=== PATIENT | female | born 1990 | race Caucasian/White ===

== ENCOUNTER 2016-09-18 09:45 | Emergency (ER) | payer OTHER ==
[2016-09-18] MEDS ORDERED: KETOROLAC 30 MG/ML 1 ML VIAL IM STA (10:21)
[2016-09-18] MEDS ORDERED: DIAZEPAM 5 MG/ML 2 ML SYRINGE IM ONE (10:21)
--- NOTE | 2016-09-18 11:32 | XR ---
EXAMINATION TYPE: XR cervical spine comp , 5 VIEWS DATE OF EXAM ORDERED: 09/18/2016 HISTORY: Pain. COMPARISON: None. FINDINGS: There is a reversal of the normal cervical lordosis which is replaced by mild kyphosis. Al ignment is normal. Atlantoaxial relationships are normal. No fractures are seen. No significant degen erative changes noted. The intervertebral foramina are widely patent. IMPRESSION: REVERSAL OF THE NORMAL CERVICAL LORDOSIS MAY BE SECONDARY TO MUSCLE SPASM. NO ACUTE OSSEOUS LESION IS SEEN.
--- NOTE | 2016-09-18 11:46 | ED ---
General Adult HPI - General Chief complaint: Neck Pain/Injury Stated complaint: neck pain Time Seen by Provider: 09/18/16 10:15 Source: patient, RN notes reviewed Mode of arrival: ambulatory Limitations: no limitations - History of Present Illness Initial comments: 20 sexual female presenting with pain in her neck primarily on the left side. Pain began suddenly this morning when she awoke. She only sleeps on her stomach and states she slipped on her back this evening and developed the pain upon wakening. She denies trauma but does states she felt a pop in her neck. She is concerned that there could be a problem with her cervical spine. She denies any shooting pain in her upper extremities. Denies any gait difficulties. Denies any trouble with her bowel or bladder. Denies numbness or tingling. - Related Data Previous Rx's Medication Instructions Recorded Ibuprofen [Motrin] 600 mg PO Q8HR PRN #24 tab 09/18/16 traMADol HCL [Ultram] 50 mg PO Q8HR PRN #20 tab 09/18/16 Allergies Allergy/AdvReac Type Severity Reaction Status Date / Time cefixime [From Suprax] Allergy Unknown Verified 09/18/16 10:13 Review of Systems ROS Statement: Those systems with pertinent positive or pertinent negative responses have been documented in the HPI. ROS Other: All systems not noted in ROS Statement are negative. Cardiovascular: Denies: chest pain Endocrine: Denies: fatigue Gastrointestinal: Denies: abdominal pain, nausea, vomiting Past Medical History Past Medical History: No Reported History Additional Past Medical History / Comment(s): previous heroin abuse History of Any Multi-Drug Resistant Organisms: None Reported Past Surgical History: No Surgical Hx Reported Past Psychological History: No Psychological Hx Reported Smoking Status: Current every day smoker Past Alcohol Use History: None Reported Past Drug Use History: None Reported General Exam Limitations: no limitations General appearance: alert, in no apparent distress Head exam: Present: atraumatic, normocephalic Eye exam: Present: normal appearance, PERRL ENT exam: Present: normal exam, mucous membranes moist Neck exam: Present: normal inspection, tenderness (Patient has tenderness to palpation over the mid cervical spine and primarily left paraspinal muscles.). Absent: full ROM Respiratory exam: Present: normal lung sounds bilaterally. Absent: respiratory distress Cardiovascular Exam: Present: regular rate, normal rhythm GI/Abdominal exam: Present: soft. Absent: distended, tenderness Extremities exam: Present: normal inspection, full ROM, normal capillary refill. Absent: pedal edema Neurological exam: Present: alert, oriented X3, CN II-XII intact. Absent: motor sensory deficit (Patient has equal strength 5 out of 5 in the upper extremities, sensation is intact.) Psychiatric exam: Present: normal affect, normal mood Skin exam: Present: warm, dry Course Vital Signs 09/18/16 09:56 Temperature 98.6 F Pulse Rate 82 Respiratory 18 Rate Blood Pressure 130/86 O2 Sat by Pulse 97 Oximetry - Reevaluation(s) Reevaluation #1: 09/18/16 11:42 Patient returns from computed tomography scan, on reevaluation after IM Toradol she is feeling somewhat better. Patient does not want narcotic medication for her pain. Medical Decision Making - Medical Decision Making 26 yo female presenting with sudden onset neck pain after sleeping on her back which is abnormal for the patient. Examination does reveal some tenderness in the paraspinal muscles. Patient is concerned for a bony abnormality in her cervical spine. CT of the cervical vertebrae is ordered and is unremarkable. Patient does not want muscle relaxers or narcotic pain medication. She was given a prescription for Motrin and tramadol and will follow up with her primary care physician. - Lab Data Lab Results 09/18/16 Range/Units 10:35 Urine HCG, Qual Not Detected (Not Detectd) Disposition Clinical Impression: Strain of neck muscle Disposition: HOME SELF-CARE Condition: Good Instructions: Cervical Strain (ED) Prescriptions: Ibuprofen [Motrin] 600 mg PO Q8HR PRN #24 tab PRN Reason: Pain traMADol HCL [Ultram] 50 mg PO Q8HR PRN #20 tab PRN Reason: Pain Referrals: Yancy Conteh MD [Primary Care Provider] - 1-2 days Time of Disposition: 11:46
[2016-09-18 11:59] VITALS: BP 125/87; PULSE 78; RESP 16; TEMP 97.9
== END 2016-09-18 12:00 | disposition home or self-care (01) ==
LOC: EC 09:45
DX: S16.1XXA Strain of muscle, fascia and tendon at neck level, initial encounter (principal); F17.200 Nicotine dependence, unspecified, uncomplicated; Z88.1 Allergy status to other antibiotic agents; X50.9XXA Other and unspecified overexertion or strenuous movements or postures, initial encounter
CPT/HCPCS: 81025; 72050; 99283; 96372 ×2; J3360; J1885

== ENCOUNTER 2016-11-03 10:14 | Emergency (ER) | payer OTHER ==
[2016-11-03] MEDS ORDERED: KETOROLAC 60 MG/2 ML VIAL IM STA (11:04)
[2016-11-03] MEDS ORDERED: DIAZEPAM 5 MG TAB PO STA (11:04)
--- NOTE | 2016-11-03 11:07 | ED ---
General Adult HPI - General Chief complaint: Neck Pain/Injury Stated complaint: NECK STIFFNESS AND PAIN Time Seen by Provider: 11/03/16 10:50 Source: patient, RN notes reviewed Mode of arrival: ambulatory Limitations: no limitations - History of Present Illness Initial comments: Patient 26-year-old female who presents emergency room today with a chief complaint of neck pain 2 days. She states she woke up 2 days ago with some pain in the back of her neck. She states worse with movements to the right and left. She states she had the same thing happened 3 weeks ago. She states she is scheduled see a chiropractor this week. She states pain was worse as she came here to the emergency room. She states she tried ibuprofen yesterday with no relief. Patient denies any injury or trauma. Denies any other complaints or symptoms. Patient denies any recent fever, chills, shortness of breath, chest pain, back pain, abdominal pain, nausea or vomiting, numbness or tingling , dysuria or hematuria, constipation or diarrhea, headaches or visual changes, or any other complaints. - Related Data Home Medications Medication Instructions Recorded Confirmed Ibuprofen [Motrin] 800 mg PO BID PRN 11/03/16 11/03/16 Previous Rx's Medication Instructions Recorded traMADol HCL [Ultram] 50 mg PO Q8HR PRN #20 tab 09/18/16 Baclofen 10 mg PO TID #20 tab 11/03/16 Ibuprofen [Motrin] 800 mg PO Q6HR #30 tab 11/03/16 traMADol HCl [Ultram] 50 mg PO Q6H PRN #40 tab 11/03/16 Allergies Allergy/AdvReac Type Severity Reaction Status Date / Time cefixime [From Suprax] Allergy Unknown Verified 11/03/16 11:31 Review of Systems ROS Statement: Those systems with pertinent positive or pertinent negative responses have been documented in the HPI. ROS Other: All systems not noted in ROS Statement are negative. Past Medical History Past Medical History: No Reported History Additional Past Medical History / Comment(s): previous heroin abuse History of Any Multi-Drug Resistant Organisms: None Reported Past Surgical History: No Surgical Hx Reported Past Psychological History: No Psychological Hx Reported Smoking Status: Current every day smoker Past Alcohol Use History: None Reported Past Drug Use History: None Reported General Exam - General Exam Comments Initial Comments: General: The patient is awake and alert, in no distress, and does not appear acutely ill. Eye: Pupils are equal, round and reactive to light, extra-ocular movements are intact. No nystagmus. There is normal conjunctiva bilaterally. No signs of icterus. Ears, nose, mouth and throat: There are moist mucous membranes and no oral lesions. Neck: The neck is supple, there is no tenderness or JVD. Cardiovascular: There is a regular rate and rhythm. No murmur, rub or gallop is appreciated. Respiratory: Lungs are clear to auscultation, respirations are non-labored, breath sounds are equal. No wheezes, stridor, rales, or rhonchi. Musculoskeletal: Patient has normal appearance of the cervical, thoracic, lumbar spine. There is no step-off deformity appreciated. Mild tenderness at C4-C5. Patient does have paravertebral tenderness both on left and right side of the cervical spine. Her pain is reproduced with any rotation of the head to the left or the right. Strength 5/5. Sensation intact. Pulses equal bilaterally 2+. Neurological: A&O x 3. CN II-XII intact, There are no obvious motor or sensory deficits. Coordination appears grossly intact. Speech is normal. Skin: Skin is warm and dry and no rashes or lesions are noted. Psychiatric: Cooperative, appropriate mood & affect, normal judgment. Limitations: no limitations Course Vital Signs 11/03/16 10:21 Temperature 98.7 F Pulse Rate 81 Respiratory 20 Rate Blood Pressure 125/75 O2 Sat by Pulse 98 Oximetry Medical Decision Making - Medical Decision Making X-ray reviewed as negative for any acute fracture dislocation. Patient feeling better here in the emergency room after medications. Will be discharged home with perception for ibuprofen, Flexeril, and Ultram. Advised to follow-up the family doctor return here to the emergency room if any symptoms increase or worsen. Disposition Clinical Impression: Torticollis, acute Disposition: HOME SELF-CARE Condition: Good Instructions: Spasmodic Torticollis (ED) Additional Instructions: Please use medication as discussed. Please follow-up with family doctor in the next 2 days of symptoms have not improved. Please return to emergency room if the symptoms increase or worsen or for any other concerns. Prescriptions: Baclofen 10 mg PO TID #20 tab Ibuprofen [Motrin] 800 mg PO Q6HR #30 tab traMADol HCl [Ultram] 50 mg PO Q6H PRN #40 tab PRN Reason: Pain Referrals: Yancy Conteh MD [Primary Care Provider] - 1-2 days Time of Disposition: 11:59
--- NOTE | 2016-11-03 11:49 | XR ---
EXAMINATION TYPE: XR cervical spine limited DATE OF EXAM: 11/03/2016 TECHNIQUE: Frontal, lateral, and open mouth view of the cervical spine are obtained. HISTORY: Pain. Pain after sleeping injury. COMPARISON: Cervical spine x-ray September 18, 2016 FINDINGS: The cervical spine is visualized in its entirety from C1 thru the top of T1 level, there i s redemonstration of reversal of normal cervical curvature without evidence of acute fracture or disl ocation. The pre-vertebral soft tissue appears within normal limits. The C1-C2 articulation is with in normal limits on the open mouth view. Vertebral body heights and disc space heights are maintained . Overlying soft tissue is unremarkable. IMPRESSION: Reversal of normal cervical curvature redemonstrated otherwise unremarkable study. No sig nificant change from prior.
--- NOTE | 2016-11-03 12:09 | ED ---
Disposition Clinical Impression: Torticollis, acute Disposition: HOME SELF-CARE Condition: Good Instructions: Spasmodic Torticollis (ED) Additional Instructions: Patient did receive Valium here in emergency room. Please use medication as discussed. Beware the medications may make you drowsy. Please follow-up with family doctor in the next 2 days of symptoms have not improved. Please return to emergency room if the symptoms increase or worsen or for any other concerns. Prescriptions: Baclofen 10 mg PO TID #20 tab Ibuprofen [Motrin] 800 mg PO Q6HR #30 tab traMADol HCl [Ultram] 50 mg PO Q6H PRN #40 tab PRN Reason: Pain Referrals: Yancy Conteh MD [Primary Care Provider] - 1-2 days
[2016-11-03 12:13] VITALS: BP 120/65; PULSE 74; RESP 16; TEMP 97.8
== END 2016-11-03 12:12 | disposition home or self-care (01) ==
LOC: EC 10:14
DX: M43.6 Torticollis (principal); F17.200 Nicotine dependence, unspecified, uncomplicated; Z88.1 Allergy status to other antibiotic agents
CPT/HCPCS: 99283; 96372; 72040; J1885

== ENCOUNTER → 2017-01-09 | Outpatient (CLI) | payer OTHER ==
[2017-01-09 13:28] LABS: CH 30.7; CHCM 32.6; HCT 41.8 % (34.0-46.0); HDW 2.41; HGB 13.6 gm/dL (11.4-16.0); MCH 30.8 pg (25.0-35.0); MCHC 32.5 g/dL (31.0-37.0); MCV 94.7 fL (80.0-100.0); Mean Platelet Volume 7.7; RBC 4.41 m/uL (3.80-5.40); RDW 12.1 % (11.5-15.5); WBC 7.8 k/uL (3.8-10.6)
[2017-01-09 13:36] LABS: ALT 165 U/L (9-52); AST 111 U/L (14-36); Alkaline Phosphatase 81 U/L (38-126); Anion Gap 10 mmol/L; Blood Urea Nitrogen 15 mg/dL (7-17); Calcium 9.6 mg/dL (8.4-10.2); Carbon Dioxide 23 mmol/L (22-30); Chloride 108 mmol/L (98-107); Glucose 75 mg/dL (74-99); Non-African American GFR(MDRD) >60 (>60 ml/min/1.73 sqM); Potassium 4.7 mmol/L (3.5-5.1); Sodium 141 mmol/L (137-145); Total Bilirubin 0.6 mg/dL (0.2-1.3); Total Protein 7.1 g/dL (6.3-8.2)
[2017-01-13 16:45] LABS: HCV Qualitative Result DETECTED (Not detected)
== END ==
LOC: LABWHC1 12:53
DX: B18.2 Chronic viral hepatitis C (principal)
CPT/HCPCS: 36415; 80053; 85027; 87522; 87902

== ENCOUNTER 2017-03-09 15:42 | Emergency (ER) | payer OTHER ==
[2017-03-09 15:49] VITALS: BP 134/91; PULSE 97; RESP 18; TEMP 97.8
[2017-03-09] MEDS ORDERED: PROMETHAZ-COD 6.25-10 MG/5 ML 5 ML CUP PO STA (16:24)
--- NOTE | 2017-03-09 16:38 | ED ---
ENT HPI - General Chief complaint: ENT Stated complaint: Cough/SOB/Chest Pain Time Seen by Provider: 03/09/17 15:55 Source: patient, RN notes reviewed, old records reviewed Mode of arrival: ambulatory Limitations: no limitations - History of Present Illness Initial comments: 26-year-old female preseitns with cough, runny nose, and sore throat for 1 week. Patient reports symptoms started with runny nose. Patient has no fever at this time. No other symptoms including vomiting, abdominal pain, nausea, dysuria. She reports that she had just gotten over her menstrual cycle. - Related Data Home Medications Medication Instructions Recorded Confirmed Ibuprofen [Motrin] 600 mg PO Q6HR PRN 03/09/17 03/09/17 Previous Rx's Medication Instructions Recorded Azithromycin 250 mg PO DAILY #6 tablet 03/09/17 Fluticasone Nasal [place] [Flonase 1 spray EA NOSTRIL DAILY #1 bottle 03/09/17 Nasal [place]] Ibuprofen [Motrin] 600 mg PO Q6HR PRN #20 tab 03/09/17 methylPREDNISolone Dose Pack 4 mg PO DIRECTED #21 package 03/09/17 [Medrol Dose Pack] Allergies Allergy/AdvReac Type Severity Reaction Status Date / Time cefixime [From Suprax] Allergy Unknown Verified 03/09/17 16:07 Review of Systems ROS Statement: Those systems with pertinent positive or pertinent negative responses have been documented in the HPI. ROS Other: All systems not noted in ROS Statement are negative. Past Medical History Past Medical History: No Reported History Additional Past Medical History / Comment(s): previous heroin abuse History of Any Multi-Drug Resistant Organisms: None Reported Past Surgical History: No Surgical Hx Reported Past Psychological History: No Psychological Hx Reported Smoking Status: Current every day smoker Past Alcohol Use History: None Reported Past Drug Use History: None Reported General Exam - General Exam Comments Initial Comments: This is a 26 year old female, no distress. Limitations: no limitations General appearance: alert, in no apparent distress Head exam: Present: atraumatic, normocephalic, normal inspection Eye exam: Present: normal appearance, PERRL, EOMI. Absent: scleral icterus, conjunctival injection, periorbital swelling ENT exam: Present: normal exam, mucous membranes moist. Absent: normal oropharynx (rhinnorhea and erythema on oropharynx. ) Neck exam: Present: normal inspection. Absent: tenderness, meningismus, lymphadenopathy Respiratory exam: Present: normal lung sounds bilaterally, other (Non productive cough. ). Absent: respiratory distress, wheezes, rales, rhonchi, stridor Cardiovascular Exam: Present: regular rate, normal rhythm, normal heart sounds. Absent: systolic murmur, diastolic murmur, rubs, gallop, clicks GI/Abdominal exam: Present: soft, normal bowel sounds. Absent: distended, tenderness, guarding, rebound, rigid Extremities exam: Present: normal inspection, full ROM, normal capillary refill. Absent: tenderness, pedal edema, joint swelling, calf tenderness Neurological exam: Present: alert, oriented X3, CN II-XII intact Psychiatric exam: Present: normal affect, normal mood Skin exam: Present: warm, dry, intact, normal color. Absent: rash Course Vital Signs 03/09/17 15:47 Temperature 97.8 F Pulse Rate 97 Respiratory 18 Rate Blood Pressure 134/91 O2 Sat by Pulse 99 Oximetry Medical Decision Making - Medical Decision Making This is a 26 year old female with upper respiratory congestion and non productive cough. Patient lungs are clear, no fever or chills. Rhinorrhea. Patient clinically sound slike bronchitis. Patient has normal chest xray. Patient given cough syrup. Patient will be treated for bronchitis with steroids and azithromycin. Discharged with flonase nasal spray and follow up with PCP. REturn parameters discussed. - Radiology Data Radiology results: report reviewed CXR is reviwed and normal. Disposition Clinical Impression: Bronchitis Disposition: HOME SELF-CARE Condition: Good Instructions: Acute Bronchitis (ED) Additional Instructions: is to take medications as prescribed. Follow-up with primary care provider. Increase her fluid intake. Return to emergency department if any alarming signs or symptoms occur. Prescriptions: Azithromycin 250 mg PO DAILY #6 tablet Fluticasone Nasal [place] [Flonase Nasal [place]] 1 spray EA NOSTRIL DAILY #1 bottle Ibuprofen [Motrin] 600 mg PO Q6HR PRN #20 tab PRN Reason: Pain methylPREDNISolone Dose Pack [Medrol Dose Pack] 4 mg PO DIRECTED #21 package Referrals: Yancy Conteh MD [Primary Care Provider] - 1-2 days Time of Disposition: 16:35
--- NOTE | 2017-03-09 16:39 | XR ---
EXAMINATION TYPE: XR chest 2V DATE OF EXAM: 03/09/2017 COMPARISON: NONE HISTORY: Cough congestion sore throat and shortness of breath. TECHNIQUE: Frontal and lateral views of the chest are obtained. FINDINGS: There is no focal air space opacity, pleural effusion, or pneumothorax seen. The cardiac silhouette size is within normal limits. The osseous structures are intact. IMPRESSION: No suspicious acute pulmonary process.
[2017-03-09] MEDS ORDERED: traMADol 50 MG STARTER PACK 3 TAB BTL PO STA (16:42)
[2017-03-09] MEDS ORDERED: FAMOTIDINE 20 MG TAB PO STA (16:42)
== END 2017-03-09 16:56 | disposition home or self-care (01) ==
LOC: EC 15:42
DX: J40 Bronchitis, not specified as acute or chronic (principal); F17.200 Nicotine dependence, unspecified, uncomplicated; Z88.1 Allergy status to other antibiotic agents
CPT/HCPCS: 71046; 99284

== ENCOUNTER → 2017-03-11 | Outpatient (CLI) | payer OTHER ==
[2017-03-11 16:33] LABS: INR 1.1 (<1.2); Prothrombin Time 10.8 sec (9.0-12.0)
== END | disposition home or self-care (01) ==
LOC: LABWHC1 15:51
PROVIDERS: ATTEND Physician Assistant
DX: B18.2 Chronic viral hepatitis C (principal)
CPT/HCPCS: 36415; 85610

== ENCOUNTER 2017-05-29 22:55 | Emergency (ER) | payer OTHER ==
[2017-05-29 23:02] VITALS: BP 117/64; PULSE 87; RESP 18; TEMP 98.5
--- NOTE | 2017-05-29 23:45 | ED ---
General Adult HPI - General Chief complaint: Abdominal Pain Stated complaint: left flank pain Time Seen by Provider: 05/29/17 23:16 Source: patient, RN notes reviewed Mode of arrival: ambulatory Limitations: no limitations - History of Present Illness Initial comments: Patient 27-year-old female presents to the emergency room today with a chief complaint of left-sided pain over the last week. Patient states that she's noticed that it's worse with certain movements when she bends or twists. She denies any injury or trauma. 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 Patient does admit to a history of hepatitis C. States currently being treated. She is unsure if this is related. Patient denies any other complaints or any other symptoms. Patient denies any recent fever, chills, shortness of breath, chest pain nausea or vomiting, numbness or tingling, dysuria or hematuria, constipation or diarrhea, headaches or visual changes, or any other complaints. - Related Data Home Medications Medication Instructions Recorded Confirmed Ibuprofen [Motrin] 600 mg PO Q6HR PRN 03/09/17 05/29/17 Ledipasvir/Sofosbuvir [Harvoni 1 tab PO HS 05/29/17 05/29/17 90-400 mg Tablet] Allergies Allergy/AdvReac Type Severity Reaction Status Date / Time cefixime [From Suprax] Allergy Unknown Verified 05/29/17 23:20 Review of Systems ROS Statement: Those systems with pertinent positive or pertinent negative responses have been documented in the HPI. ROS Other: All systems not noted in ROS Statement are negative. Past Medical History Past Medical History: No Reported History Additional Past Medical History / Comment(s): previous heroin abuse History of Any Multi-Drug Resistant Organisms: None Reported Past Surgical History: No Surgical Hx Reported Past Psychological History: No Psychological Hx Reported Smoking Status: Current every day smoker Past Alcohol Use History: None Reported Past Drug Use History: None Reported General Exam - General Exam Comments Initial Comments: General: The patient is awake and alert, in no distress, and does not appear acutely ill. Eye: Pupils are equal, round and reactive to light, extra-ocular movements are intact. No nystagmus. There is normal conjunctiva bilaterally. No signs of icterus. Ears, nose, mouth and throat: There are moist mucous membranes and no oral lesions. Neck: The neck is supple, there is no tenderness or JVD. Cardiovascular: There is a regular rate and rhythm. No murmur, rub or gallop is appreciated. Respiratory: Lungs are clear to auscultation, respirations are non-labored, breath sounds are equal. No wheezes, stridor, rales, or rhonchi. Gastrointestinal: Abdomen soft on palpation. Does have tenderness left flank area and left upper quadrant. No rebound tenderness. No guarding. No CVA tenderness. Musculoskeletal: Normal ROM, no tenderness. Strength 5/5. Sensation intact. Pulses equal bilaterally 2+. Neurological: A&O x 3. CN II-XII intact, There are no obvious motor or sensory deficits. Coordination appears grossly intact. Speech is normal. Skin: Skin is warm and dry and no rashes or lesions are noted. Psychiatric: Cooperative, appropriate mood & affect, normal judgment. Limitations: no limitations Course Vital Signs 05/29/17 23:00 Temperature 98.5 F Pulse Rate 87 Respiratory 18 Rate Blood Pressure 117/64 O2 Sat by Pulse 100 Oximetry Medical Decision Making - Medical Decision Making Options were discussed with the patient here in the emergency room about labs. 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 She was told that labs would take approximately an hour. She states she cannot wait that long. She is agreeable to have her blood drawn but then will sign out AMA and social follow-up the family doctor for her results. Patient advised return to emergency room if any symptoms increase or worsen. Disposition Clinical Impression: Flank pain Disposition: Left Against Medical Advice Condition: Good Instructions: Abdominal Pain (ED) Referrals: Yancy Conteh MD [Primary Care Provider] - 1-2 days Time of Disposition: 23:45
[2017-05-29 23:52] LABS: Basophils % (A) 0 %; Eosinophils # (A) 0.3 k/uL (0-0.7); Eosinophils % (A) 3 %; HCT 37.9 % (34.0-46.0); HGB 13.2 gm/dL (11.4-16.0); Lymphocytes # (A) 2.9 k/uL (1.0-4.8); Lymphocytes % (A) 32 %; MCH 30.4 pg (25.0-35.0); MCHC 34.8 g/dL (31.0-37.0); MCV 87.3 fL (80.0-100.0); Mean Platelet Volume 8.3; Monocytes # (A) 0.5 k/uL (0-1.0); Monocytes % (A) 5 %; Neutrophils # (A) 5.1 k/uL (1.3-7.7); Neutrophils % (A) 57 %; Platelet Count 182 k/uL (150-450); RBC 4.34 m/uL (3.80-5.40); WBC 8.9 k/uL (3.8-10.6)
[2017-05-30 00:03] LABS: ALT 33 U/L (9-52); AST 32 U/L (14-36); Albumin 4.2 g/dL (3.5-5.0); Alkaline Phosphatase 79 U/L (38-126); Amylase 58 U/L (30-110); Anion Gap 14 mmol/L; Blood Urea Nitrogen 14 mg/dL (7-17); Calcium 9.8 mg/dL (8.4-10.2); Carbon Dioxide 23 mmol/L (22-30); Chloride 107 mmol/L (98-107); Glucose 85 mg/dL (74-99); Lipase 166 U/L (23-300); Potassium 3.9 mmol/L (3.5-5.1); Sodium 144 mmol/L (137-145); Total Bilirubin 0.4 mg/dL (0.2-1.3)
== END 2017-05-29 23:51 | disposition left against medical advice (07) ==
LOC: EC 22:55
DX: R10.9 Unspecified abdominal pain (principal); F17.220 Nicotine dependence, chewing tobacco, uncomplicated; Z86.19 Personal history of other infectious and parasitic diseases; Z79.899 Other long term (current) drug therapy; Z88.1 Allergy status to other antibiotic agents
CPT/HCPCS: 36415; 80053; 82150; 83690; 85025; 99283

== ENCOUNTER → 2017-07-18 | Outpatient (CLI) | payer OTHER ==
[2017-07-18 17:46] LABS: Basophils % (A) 0 %; Eosinophils # (A) 0.3 k/uL (0-0.7); Eosinophils % (A) 4 %; HCT 38.1 % (34.0-46.0); HGB 12.5 gm/dL (11.4-16.0); Lymphocytes % (A) 26 %; MCH 30.2 pg (25.0-35.0); MCHC 32.9 g/dL (31.0-37.0); Mean Platelet Volume 7.1; Monocytes # (A) 0.4 k/uL (0-1.0); Monocytes % (A) 5 %; Neutrophils # (A) 4.8 k/uL (1.3-7.7); Neutrophils % (A) 63 %; Platelet Count 304 k/uL (150-450); RBC 4.14 m/uL (3.80-5.40); RDW 12.7 % (11.5-15.5); WBC 7.7 k/uL (3.8-10.6)
[2017-07-18 17:47] LABS: INR 1.3 (<1.2); Prothrombin Time 12.2 sec (9.0-12.0)
[2017-07-18 18:04] LABS: Albumin 4.1 g/dL (3.5-5.0); Bilirubin, Delta 0.3 mg/dL (0.0-0.2); Bilirubin,Unconjugated 0.1 mg/dL (0.0-1.1); Total Bilirubin 0.4 mg/dL (0.2-1.3); Total Protein 6.6 g/dL (6.3-8.2)
[2017-07-21 14:17] LABS: HCV Quant Log <1.08 (<1.08); HCV Quantitative Result <12 IU/mL (<12)
== END | disposition home or self-care (01) ==
LOC: LABWHC1 16:57
PROVIDERS: ATTEND Physician Assistant
DX: B18.2 Chronic viral hepatitis C (principal)
CPT/HCPCS: 36415; 80076; 85025; 85610; 87522

== ENCOUNTER 2017-09-17 11:48 | Emergency (ER) | payer OTHER ==
[2017-09-17 12:03] VITALS: BP 119/82; PULSE 74; RESP 18; TEMP 98.1
--- NOTE | 2017-09-17 12:55 | XR ---
EXAMINATION TYPE: XR knee complete LT DATE OF EXAM: 09/17/2017 CLINICAL HISTORY: pain TECHNIQUE: Three views of the left knee are obtained. COMPARISON: None. FINDINGS: There is no acute fracture/dislocation. The tri-compartment joint spaces appear within no rmal limits. The overlying soft tissue appears unremarkable. IMPRESSION: There is no acute fracture or dislocation ICD 10 NO FRACTURE, INITIAL EVALUATION
--- NOTE | 2017-09-17 13:06 | ED ---
Extremity Problem HPI - General Chief complaint: Extremity Problem,Nontraumatic Stated complaint: Left Knee Pain Time Seen by Provider: 09/17/17 12:09 Source: patient Mode of arrival: ambulatory Limitations: no limitations - History of Present Illness Initial comments: This is a 27-year-old female with no past medical history who presents today for chief complaint of left knee pain 1 week. Patient states that she ramblings began experiencing left knee pain last week she describes the pain as localized to the patella and inferior to the patella, the pain increases when going upstairs and when sitting down. Patient denies any swelling, trauma or injury to the left knee. 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 Patient denies trying to alleviate the pain with medication or ice. Patient presented emergency department today because she is tired of the pain. In addition patient was requesting a work note. Patient denies any numbness, paresthesias or loss of sensation of the lower extremities, coolness of the left lower extremity, rash, calf pain, posterior knee pain, erythema of the left knee, decreased range of motion of left knee, decreased strength or weakness of the knees bilaterally, dislocation , previous injury or surgery to the knees, fever, chills, recent STD, chest pain , shortness of breath, diarrhea, constipation, urgency, frequency, visual changes. - Related Data Home Medications Medication Instructions Recorded Confirmed Ibuprofen [Motrin] 600 mg PO Q6HR PRN 03/09/17 05/29/17 Ledipasvir/Sofosbuvir [Harvoni 1 tab PO HS 05/29/17 05/29/17 90-400 mg Tablet] Previous Rx's Medication Instructions Recorded Naproxen [EC-Naprosyn] 375 mg PO Q8H PRN 5 Days #15 09/17/17 tablet. Allergies Allergy/AdvReac Type Severity Reaction Status Date / Time cefixime [From Suprax] Allergy Unknown Verified 09/17/17 12:03 Review of Systems ROS Statement: Those systems with pertinent positive or pertinent negative responses have been documented in the HPI. ROS Other: All systems not noted in ROS Statement are negative. Constitutional: Denies: fever, chills Eyes: Denies: eye pain ENT: Denies: throat pain Respiratory: Denies: cough, dyspnea Cardiovascular: Denies: chest pain Gastrointestinal: Denies: abdominal pain, nausea, vomiting, diarrhea, constipation Musculoskeletal: Reports: as per HPI, arthralgia. Denies: joint swelling Skin: Denies: rash, lesions Neurological: Denies: headache, weakness, numbness, paresthesias, abnormal gait Past Medical History Past Medical History: No Reported History Additional Past Medical History / Comment(s): previous heroin abuse History of Any Multi-Drug Resistant Organisms: None Reported Past Surgical History: No Surgical Hx Reported Past Psychological History: No Psychological Hx Reported Smoking Status: Current every day smoker Past Alcohol Use History: None Reported Past Drug Use History: None Reported General Exam - General Exam Comments Initial Comments: General: The patient is awake and alert, in no distress, and does not appear acutely ill. Eye: Pupils are equal, round and reactive to light, extra-ocular movements are intact. No nystagmus. There is normal conjunctiva bilaterally. No signs of icterus. Ears, nose, mouth and throat: There are moist mucous membranes and no oral lesions. Neck: The neck is supple, there is no tenderness or JVD. Cardiovascular: There is a regular rate and rhythm. No murmur, rub or gallop is appreciated. Respiratory: Lungs are clear to auscultation, respirations are non-labored, breath sounds are equal. No wheezes, stridor, rales, or rhonchi. Gastrointestinal: [Soft, non-distended, non-tender abdomen without masses or organomegaly noted. There is no rebound or guarding present. No CVA tenderness. Bowel sounds are unremarkable.] Musculoskeletal: Upon examination of the left knee there is no swelling, ecchymosis, erythema or overlying lesions or abrasions of the knees bilaterally. There is tenderness to palpation over the inferior pole of the patella and knee joint line. Patient is able to passively and actively fully range the knees bilaterally. There is no evidence of crepitus or clicking, or joint laxity. Extensor mechanism intact. Patient is able to ambulate without any gait abnormalities. Strength of the knees bilaterally 5 out of 5. No tenderness to patient over the calf or posterior fossa of the left knee. Sensation intact of the lower extremities equally bilaterally. Pulses equal bilaterally 2+ DP. Neurological: A&O x 3. CN II-XII intact, There are no obvious motor or sensory deficits. Coordination appears grossly intact. Speech is normal. +2 out of 5 deep tendon reflexes. Skin: Skin is warm and dry and no rashes or lesions are noted. Psychiatric: Cooperative, appropriate mood & affect, normal judgment. Limitations: no limitations Course Vital Signs 09/17/17 12:01 Temperature 98.1 F Pulse Rate 74 Respiratory 18 Rate Blood Pressure 119/82 O2 Sat by Pulse 99 Oximetry Medical Decision Making - Medical Decision Making X-ray of the right knee revealed no evidence of fracture, dislocation. Joint spacing within normal limits. Case was discussed in detail with Dr. Lemon. At this time I do feel that this is an overuse injury, possible patella femorla syndrome. She was instructed to decrease the amount of bending of the left knee for the next week. She may ice and elevate at home, and take naproxen for pain management as needed. Patient was instructed to follow-up with her primary care physician in one to 2 days if symptoms are not alleviated. Patient returned to the emergency department if symptoms worsen or change. Disposition Clinical Impression: Left anterior knee pain Disposition: HOME SELF-CARE Condition: Good Instructions: Patellofemoral Pain Syndrome (ED), Knee Pain (ED) Additional Instructions: Please use medication as discussed. Rest, ice and elevate knee as discussed. Please follow-up with family doctor in the next 2 days of symptoms have not improved. Please return to emergency room if the symptoms increase or worsen or for any other concerns. Prescriptions: Naproxen [EC-Naprosyn] 375 mg PO Q8H PRN 5 Days #15 tablet.dr MCCAIN Reason: Pain Is patient prescribed a controlled substance at d/c from ED?: No Referrals: Yancy Conteh MD [Primary Care Provider] - 1-2 days Time of Disposition: 13:13
== END 2017-09-17 13:33 | disposition home or self-care (01) ==
LOC: EC 11:48
DX: M25.562 Pain in left knee (principal); F17.200 Nicotine dependence, unspecified, uncomplicated; Z79.899 Other long term (current) drug therapy; Z88.1 Allergy status to other antibiotic agents
CPT/HCPCS: 99283

== ENCOUNTER 2017-10-02 16:28 | Emergency (ER) | payer OTHER ==
[2017-10-02 16:35] VITALS: BP 124/84; PULSE 77; RESP 18; TEMP 98.2
--- NOTE | 2017-10-02 17:38 | ED ---
Lower Extremity Injury HPI - General Chief Complaint: Extremity Injury, Lower Stated Complaint: left knee pain Time Seen by Provider: 10/02/17 16:50 Source: patient, RN notes reviewed, old records reviewed Mode of arrival: ambulatory Limitations: no limitations - History of Present Illness Initial Comments: 27 year old female with CC of left knee pain for the past month. She states that the pain is worse today after she twisted and fell on her knee yesterday. Patient reports she needs a work note and ibuprofen for today. She denies paresthesias. Denies posterior leg pain. - Related Data Home Medications Medication Instructions Recorded Confirmed Ibuprofen [Motrin] 600 mg PO Q6HR PRN 03/09/17 05/29/17 Ledipasvir/Sofosbuvir [Harvoni 1 tab PO HS 05/29/17 05/29/17 90-400 mg Tablet] Previous Rx's Medication Instructions Recorded Naproxen [EC-Naprosyn] 375 mg PO Q8H PRN 5 Days #15 09/17/17 tablet. Ibuprofen [Motrin] 600 mg PO Q6HR PRN #20 tab 10/02/17 Allergies Allergy/AdvReac Type Severity Reaction Status Date / Time cefixime [From Suprax] Allergy Unknown Verified 10/02/17 16:35 Review of Systems ROS Statement: Those systems with pertinent positive or pertinent negative responses have been documented in the HPI. ROS Other: All systems not noted in ROS Statement are negative. Constitutional: Denies: chills Eyes: Denies: eye pain ENT: Denies: ear pain Respiratory: Denies: cough, dyspnea Cardiovascular: Denies: chest pain Gastrointestinal: Denies: abdominal pain, nausea Musculoskeletal: Reports: joint swelling, arthralgia. Denies: back pain Skin: Denies: lesions Neurological: Denies: headache Psychiatric: Denies: anxiety Past Medical History Past Medical History: No Reported History Additional Past Medical History / Comment(s): previous heroin abuse History of Any Multi-Drug Resistant Organisms: None Reported Past Surgical History: No Surgical Hx Reported Past Psychological History: No Psychological Hx Reported Smoking Status: Current every day smoker Past Alcohol Use History: None Reported Past Drug Use History: None Reported General Exam - General Exam Comments Initial Comments: Well appearing 27 year old female, no distress. Limitations: no limitations General appearance: alert, in no apparent distress Head exam: Present: atraumatic, normocephalic, normal inspection Eye exam: Present: normal appearance, PERRL, EOMI. Absent: scleral icterus, conjunctival injection, periorbital swelling ENT exam: Present: normal exam, mucous membranes moist Neck exam: Present: normal inspection. Absent: tenderness, meningismus, lymphadenopathy Respiratory exam: Present: normal lung sounds bilaterally. Absent: respiratory distress, wheezes, rales, rhonchi, stridor Cardiovascular Exam: Present: regular rate, normal rhythm, normal heart sounds. Absent: systolic murmur, diastolic murmur, rubs, gallop, clicks Left Knee exam: Present: normal inspection, full ROM, tenderness (over medial meniscus) Lower Leg exam: Present: normal inspection, full ROM Ankle exam: Present: normal inspection, full ROM Neurovascular tendon exam: Present: no vascular compromise Course Vital Signs 10/02/17 16:33 Temperature 98.2 F Pulse Rate 77 Respiratory 18 Rate Blood Pressure 124/84 O2 Sat by Pulse 97 Oximetry Medical Decision Making - Medical Decision Making Patient is a 27 year old female, requesting work note for L knee pain. Pain has been going on for one month, and worse today after recent twisting. She refuses xrays at this time. Patient has full ROM and has normal sensation and vascularly intact below the leg. She has no other abnormal symptoms. Patient is adament about work note. Discussed follow up with PCP and may need MRI. Discussed RICE treatment, and return parameters discussed. Given today off of work. Disposition Clinical Impression: Left anterior knee pain, Knee sprain Disposition: HOME SELF-CARE Condition: Good Instructions: Knee Sprain (ED) Additional Instructions: Patient has follow-up with primary care physician, follow-up with orthopedic. Return to the emergency department if any alarming signs or symptoms occur. Prescriptions: Ibuprofen [Motrin] 600 mg PO Q6HR PRN #20 tab PRN Reason: Pain Is patient prescribed a controlled substance at d/c from ED?: No Referrals: Yancy Conteh MD [Primary Care Provider] - 1-2 days Bartolo Bernstein MD [Medical Doctor] - 1-2 days Time of Disposition: 17:38
== END 2017-10-02 17:49 | disposition home or self-care (01) ==
LOC: EC 16:28
DX: S83.92XA Sprain of unspecified site of left knee, initial encounter (principal); F17.200 Nicotine dependence, unspecified, uncomplicated; Z79.899 Other long term (current) drug therapy; Z88.1 Allergy status to other antibiotic agents; X50.1XXA Overexertion from prolonged static or awkward postures, initial encounter; W19.XXXA Unspecified fall, initial encounter
CPT/HCPCS: 99283

== ENCOUNTER 2018-03-29 15:26 | Emergency (ER) | payer OTHER ==
[2018-03-29 15:33] VITALS: BP 138/80; PULSE 85; RESP 18; TEMP 98.6
--- NOTE | 2018-03-29 15:57 | ED ---
General Adult HPI - General Chief complaint: Skin/Abscess/Foreign Body Stated complaint: cysts Time Seen by Provider: 03/29/18 15:49 Source: patient, RN notes reviewed Mode of arrival: ambulatory Limitations: no limitations - History of Present Illness Initial comments: 27 year old F presents for cyst in right groin x 2 days. Patient states she has had these cysts before multiple times. States she has never seen a surgeon before. States these are very painful to touch. She has tried to pop them without relief. Patient denies fevers or chills. She also states there is an abscess developing on her left groin as well.Patient has no other complaints at this time including shortness of breath, chest pain, abdominal pain, nausea or vomiting, headache, or visual changes. - Related Data Home Medications Medication Instructions Recorded Confirmed Ibuprofen [Motrin] 600 mg PO Q6HR PRN 03/09/17 05/29/17 Ledipasvir/Sofosbuvir [Harvoni 1 tab PO HS 05/29/17 05/29/17 90-400 mg Tablet] Previous Rx's Medication Instructions Recorded Naproxen [EC-Naprosyn] 375 mg PO Q8H PRN 5 Days #15 09/17/17 tablet. Ibuprofen [Motrin] 600 mg PO Q6HR PRN #20 tab 10/02/17 Sulfamethox-Tmp 800-160Mg [Bactrim 1 tab PO Q12HR #20 tab 03/29/18 DS 800-160 mg] Allergies Allergy/AdvReac Type Severity Reaction Status Date / Time cefixime [From Suprax] Allergy Unknown Verified 03/29/18 15:33 Review of Systems ROS Statement: Those systems with pertinent positive or pertinent negative responses have been documented in the HPI. ROS Other: All systems not noted in ROS Statement are negative. Past Medical History Past Medical History: No Reported History Additional Past Medical History / Comment(s): previous heroin abuse History of Any Multi-Drug Resistant Organisms: None Reported Past Surgical History: No Surgical Hx Reported Past Psychological History: No Psychological Hx Reported Smoking Status: Current every day smoker Past Alcohol Use History: None Reported Past Drug Use History: None Reported General Exam Limitations: no limitations General appearance: alert, in no apparent distress Head exam: Present: atraumatic, normocephalic, normal inspection Eye exam: Present: normal appearance, PERRL, EOMI. Absent: scleral icterus, conjunctival injection, periorbital swelling ENT exam: Present: normal exam, mucous membranes moist Neck exam: Present: normal inspection, full ROM. Absent: tenderness, meningismus, lymphadenopathy Respiratory exam: Present: normal lung sounds bilaterally. Absent: respiratory distress, wheezes, rales, rhonchi, stridor Cardiovascular Exam: Present: regular rate, normal rhythm, normal heart sounds. Absent: systolic murmur, diastolic murmur, rubs, gallop, clicks GI/Abdominal exam: Present: soft, normal bowel sounds. Absent: distended, tenderness, guarding, rebound, rigid External exam: Present: other (Patient has a 1 cm x 1 cm abscess noted to the right inguinal area. She also has a 0.5 cm x 0.5 cm abscess to the left inguinal area. No spreading redness or erythema. No evidence of cellulitis.) Neurological exam: Present: alert, oriented X3, CN II-XII intact Psychiatric exam: Present: normal affect, normal mood Course Vital Signs 03/29/18 15:31 Temperature 98.6 F Pulse Rate 85 Respiratory 18 Rate Blood Pressure 138/80 O2 Sat by Pulse 98 Oximetry Procedures - Incision & Drainage Consent Obtained: verbal consent Site: other (Right inguinal area) Size (cm): 1 Anesthetic Used: lidocaine 1% Amount (mLs): 1 I&D Cleaning Method: Chloroprep Sterile Field Used?: Yes Scalpel Used: #11 Needle Aspiration Performed?: No Irrigation Performed?: No I&D Drainage Obtained: Pus, Blood Culture Obtained?: No Patient Tolerated Procedure: well Medical Decision Making - Medical Decision Making 27-year-old female presents to the emergency department for a chief complaint of abscess. Patient has 2 small abscesses and bilateral groin. Patient has had these before but has not seen Gen. surgery. Right abscess was incised and drained successfully. Hemostat was used to break loculations. Did offer to do left abscess the patient refuses stating she would rather follow up for this as it is not that painful at this moment. Patient was given Bactrim after a negative test. Patient was given referral to general surgery. Patient will follow up with primary care in 1-2 days as well and return if she has worsening symptoms. - Lab Data Lab Results 03/29/18 03/29/18 Range/Units 16:10 16:10 Urine Color Yellow Urine Appearance Clear (Clear) Urine pH 5.5 (5.0-8.0) Ur Specific [place] 1.026 (1.001-1.035) Urine Protein Negative (Negative) Urine Glucose (UA) Negative (Negative) Urine Ketones Negative (Negative) Urine Blood Negative (Negative) Urine Nitrite Negative (Negative) Urine Bilirubin Negative (Negative) Urine Urobilinogen <2.0 (<2.0) mg/dL Ur Leukocyte Esterase Trace H (Negative) Urine RBC <1 (0-5) /hpf Urine WBC 2 (0-5) /hpf Ur Squamous Epith Cells 5 H (0-4) /hpf Urine Bacteria Rare H (None) /hpf Urine Mucus Occasional H (None) /hpf Urine HCG, Qual Not Detected (Not Detectd) Disposition Clinical Impression: Abscess Disposition: HOME SELF-CARE Condition: Good Instructions (If sedation given, give patient instructions): Abscess Incision and Drainage (ED), Abscess (ED) Additional Instructions: Please take antibiotic as directed. Take Motrin and Tylenol for pain. Apply warm compresses to the area multiple times per day. Please follow-up with surgery in 1-2 days. Please return to the emergency department if you have any worsening symptoms. Prescriptions: Sulfamethox-Tmp 800-160Mg [Bactrim DS 800-160 mg] 1 tab PO Q12HR #20 tab Is patient prescribed a controlled substance at d/c from ED?: No Referrals: Yancy Conteh MD [Primary Care Provider] - 1-2 days Marcus Urban MD [STAFF PHYSICIAN] - 1-2 days Natalie Barth MD [STAFF PHYSICIAN] - 1-2 days Time of Disposition: 16:39
[2018-03-29] MEDS ORDERED: LIDOCAINE 1% INJ 10MG/ML (20 ML MDV) SQ ONE (16:05)
[2018-03-29 16:40] LABS: Appearance,Urine Clear (Clear); Bacteria,Urine Rare /hpf; Bilirubin,Urine Negative (Negative); Blood,Urine Negative (Negative); Color,Urine Yellow; Glucose,Urine (UA) Negative (Negative); Ketones,Urine Negative (Negative); Leukocyte Esterase,Urine Trace (Negative); Mucus,Urine Occasional /hpf; Nitrite,Urine Negative (Negative); PH, Urine 5.5 (5.0-8.0); Protein,Urine Negative (Negative); RBC,Urine <1 /hpf (0-5); Specific Gravity,Urine 1.026 (1.001-1.035); Squamous Epithelial Cell,Urine 5 /hpf (0-4); Urobilinogen,Urine <2.0 mg/dL (<2.0); WBC,Urine 2 /hpf (0-5)
[2018-03-29] MEDS ORDERED: SULFAMETH-TMP DS STARTER PACK 2 TAB BTL PO STA (16:41)
== END 2018-03-29 16:46 | disposition home or self-care (01) ==
LOC: EC 15:26
DX: L02.214 Cutaneous abscess of groin (principal); F17.200 Nicotine dependence, unspecified, uncomplicated; Z53.29 Procedure and treatment not carried out because of patient's decision for other reasons; Z79.3 Long term (current) use of hormonal contraceptives; Z88.1 Allergy status to other antibiotic agents
CPT/HCPCS: 81001; 81025; 99283; 10060; J2001

== ENCOUNTER 2019-01-25 13:13 | Emergency (ER) | payer OTHER ==
[2019-01-25 13:17] VITALS: TEMP 98.1
[2019-01-25] MEDS ORDERED: SODIUM CHLORIDE 0.9% 500 ML 500 ML IV STA (13:36)
[2019-01-25] MEDS ORDERED: LORazepam 2 MG/ML INJ IV STA ×2 (13:36→15:13)
--- NOTE | 2019-01-25 13:45 | ED ---
Arrhythmia/Palpitations HPI - General Chief Complaint: Arrhythmia/Palpitations Stated Complaint: palpitations Time Seen by Provider: 01/25/19 13:25 Source: patient, RN notes reviewed Mode of arrival: wheelchair Limitations: no limitations - History of Present Illness Initial Comments: 28-year-old female presents emergency from chief complaint of palpitations, generalized weakness. Patient states that she just started feeling heart racing and feeling very weak. She states she is very anxious. Patient states that she smoked marijuana today states her day off of work. She states that this is a normal thing for her. She does not believe that it was laced with anything. Patient states that she is very concerned has he mother of heart disease 7 months ago. She denies any pleuritic chest pain denies any current shortness breath, nausea vomiting. She does admit that she is very anxious, is tearful denies any suicidal or homicidal. - Related Data Home Medications Medication Instructions Recorded Confirmed Ibuprofen [Motrin] 600 mg PO Q6HR PRN 03/09/17 05/29/17 Ledipasvir/Sofosbuvir [Harvoni 1 tab PO HS 05/29/17 05/29/17 90-400 mg Tablet] Previous Rx's Medication Instructions Recorded Naproxen [EC-Naprosyn] 375 mg PO Q8H PRN 5 Days #15 09/17/17 tablet. Ibuprofen [Motrin] 600 mg PO Q6HR PRN #20 tab 10/02/17 Sulfamethox-Tmp 800-160Mg [Bactrim 1 tab PO Q12HR #20 tab 03/29/18 DS 800-160 mg] Allergies Allergy/AdvReac Type Severity Reaction Status Date / Time cefixime [From Suprax] Allergy Unknown Verified 01/25/19 13:17 Review of Systems ROS Statement: Those systems with pertinent positive or pertinent negative responses have been documented in the HPI. ROS Other: All systems not noted in ROS Statement are negative. Past Medical History Past Medical History: No Reported History Additional Past Medical History / Comment(s): previous heroin abuse History of Any Multi-Drug Resistant Organisms: None Reported Past Surgical History: No Surgical Hx Reported Past Psychological History: Anxiety, Depression Smoking Status: Current every day smoker Past Alcohol Use History: None Reported Past Drug Use History: Heroin, Marijuana General Exam Limitations: no limitations General appearance: alert, in no apparent distress, anxious Head exam: Present: atraumatic, normocephalic, normal inspection Eye exam: Present: normal appearance, PERRL, EOMI. Absent: scleral icterus, conjunctival injection, periorbital swelling ENT exam: Present: normal exam, normal oropharynx, mucous membranes moist Neck exam: Present: normal inspection, full ROM. Absent: tenderness, meningismus, lymphadenopathy Respiratory exam: Present: normal lung sounds bilaterally. Absent: respiratory distress, wheezes, rales, rhonchi, stridor Cardiovascular Exam: Present: normal rhythm, tachycardia, normal heart sounds. Absent: systolic murmur, diastolic murmur, rubs, gallop, clicks GI/Abdominal exam: Present: soft, normal bowel sounds. Absent: distended, tenderness, guarding, rebound, rigid Neurological exam: Present: alert, oriented X3, CN II-XII intact Psychiatric exam: Present: anxious Skin exam: Present: warm, dry, intact, normal color. Absent: rash Course Vital Signs 01/25/19 13:14 Temperature 98.1 F Pulse Rate 104 H Respiratory 22 Rate Blood Pressure 134/81 O2 Sat by Pulse 99 Oximetry EKG Findings - EKG Comments: EKG Findings:: EKG performed at 13:24 normal sinus rhythm rate of 83 CO 178 QRS 96 QT/QTC 398/467 Medical Decision Making - Medical Decision Making Patient for workup including labs, EKG and chest x-ray are all unremarkable. Patient does admit to marijuana use. Patient symptoms are related to anxiety at this time. There are no acute cardiac findings EKG is unremarkable. Patient had no abnormal rhythms. Patient will follow-up PCP she is advised to discontinue marijuana use. - Lab Data Result diagrams: 01/25/19 13:55 01/25/19 13:55 Lab Results 01/25/19 01/25/19 01/25/19 Range/Units 13:55 13:55 13:55 WBC 6.9 (3.8-10.6) k/uL RBC 4.46 (3.80-5.40) m/uL Hgb 13.6 (11.4-16.0) gm/dL Hct 41.3 (34.0-46.0) % MCV 92.8 (80.0-100.0) fL MCH 30.6 (25.0-35.0) pg MCHC 33.0 (31.0-37.0) g/dL RDW 12.4 (11.5-15.5) % Plt Count 333 (150-450) k/uL Neutrophils % 66 % Lymphocytes % 26 % Monocytes % 5 % Eosinophils % 2 % Basophils % 1 % Neutrophils # 4.5 (1.3-7.7) k/uL Lymphocytes # 1.8 (1.0-4.8) k/uL Monocytes # 0.4 (0-1.0) k/uL Eosinophils # 0.1 (0-0.7) k/uL Basophils # 0.0 (0-0.2) k/uL PT 11.5 (9.0-12.0) sec INR 1.1 (<1.2) APTT 22.9 (22.0-30.0) sec Sodium 139 (137-145) mmol/L Potassium 4.3 (3.5-5.1) mmol/L Chloride 108 H (98-107) mmol/L Carbon Dioxide 24 (22-30) mmol/L Anion Gap 7 mmol/L BUN 11 (7-17) mg/dL Creatinine 0.62 (0.52-1.04) mg/dL Est GFR (CKD-EPI)AfAm >90 (>60 ml/min/1.73 sqM) Est GFR (CKD-EPI)NonAf >90 (>60 ml/min/1.73 sqM) Glucose 110 H (74-99) mg/dL Calcium 9.1 (8.4-10.2) mg/dL Magnesium 1.7 (1.6-2.3) mg/dL Total Bilirubin 0.9 (0.2-1.3) mg/dL AST 30 (14-36) U/L ALT 24 (9-52) U/L Alkaline Phosphatase 46 (38-126) U/L Troponin I (0.000-0.034) ng/mL Total Protein 7.2 (6.3-8.2) g/dL Albumin 4.2 (3.5-5.0) g/dL TSH 0.838 (0.465-4.680) mIU/L Urine Color Urine Appearance (Clear) Urine pH (5.0-8.0) Ur Specific [place] (1.001-1.035) Urine Protein (Negative) Urine Glucose (UA) (Negative) Urine Ketones (Negative) Urine Blood (Negative) Urine Nitrite (Negative) Urine Bilirubin (Negative) Urine Urobilinogen (<2.0) mg/dL Ur Leukocyte Esterase (Negative) Urine HCG, Qual (Not Detectd) Urine Opiates Screen (NotDetected) Ur Oxycodone Screen (NotDetected) Urine Methadone Screen (NotDetected) Ur Propoxyphene Screen (NotDetected) Ur Barbiturates Screen (NotDetected) U Tricyclic Antidepress (NotDetected) Ur Phencyclidine Scrn (NotDetected) Ur Amphetamines Screen (NotDetected) U Methamphetamines Scrn (NotDetected) U Benzodiazepines Scrn (NotDetected) Urine Cocaine Screen (NotDetected) U Marijuana (THC) Screen (NotDetected) 01/25/19 01/25/19 01/25/19 Range/Units 13:55 14:30 14:30 WBC (3.8-10.6) k/uL RBC (3.80-5.40) m/uL Hgb (11.4-16.0) gm/dL Hct (34.0-46.0) % MCV (80.0-100.0) fL MCH (25.0-35.0) pg MCHC (31.0-37.0) g/dL RDW (11.5-15.5) % Plt Count (150-450) k/uL Neutrophils % % Lymphocytes % % Monocytes % % Eosinophils % % Basophils % % Neutrophils # (1.3-7.7) k/uL Lymphocytes # (1.0-4.8) k/uL Monocytes # (0-1.0) k/uL Eosinophils # (0-0.7) k/uL Basophils # (0-0.2) k/uL PT (9.0-12.0) sec INR (<1.2) APTT (22.0-30.0) sec Sodium (137-145) mmol/L Potassium (3.5-5.1) mmol/L Chloride (98-107) mmol/L Carbon Dioxide (22-30) mmol/L Anion Gap mmol/L BUN (7-17) mg/dL Creatinine (0.52-1.04) mg/dL Est GFR (CKD-EPI)AfAm (>60 ml/min/1.73 sqM) Est GFR (CKD-EPI)NonAf (>60 ml/min/1.73 sqM) Glucose (74-99) mg/dL Calcium (8.4-10.2) mg/dL Magnesium (1.6-2.3) mg/dL Total Bilirubin (0.2-1.3) mg/dL AST (14-36) U/L ALT (9-52) U/L Alkaline Phosphatase (38-126) U/L Troponin I <0.012 (0.000-0.034) ng/mL Total Protein (6.3-8.2) g/dL Albumin (3.5-5.0) g/dL TSH (0.465-4.680) mIU/L Urine Color Yellow Urine Appearance Clear (Clear) Urine pH 5.5 (5.0-8.0) Ur Specific [place] 1.022 (1.001-1.035) Urine Protein Trace H (Negative) Urine Glucose (UA) Negative (Negative) Urine Ketones Negative (Negative) Urine Blood Negative (Negative) Urine Nitrite Negative (Negative) Urine Bilirubin Negative (Negative) Urine Urobilinogen <2.0 (<2.0) mg/dL Ur Leukocyte Esterase Negative (Negative) Urine HCG, Qual Not Detected (Not Detectd) Urine Opiates Screen Not Detected (NotDetected) Ur Oxycodone Screen Not Detected (NotDetected) Urine Methadone Screen Not Detected (NotDetected) Ur Propoxyphene Screen Not Detected (NotDetected) Ur Barbiturates Screen Not Detected (NotDetected) U Tricyclic Antidepress Not Detected (NotDetected) Ur Phencyclidine Scrn Not Detected (NotDetected) Ur Amphetamines Screen Not Detected (NotDetected) U Methamphetamines Scrn Not Detected (NotDetected) U Benzodiazepines Scrn Not Detected (NotDetected) Urine Cocaine Screen Not Detected (NotDetected) U Marijuana (THC) Screen Detected H (NotDetected) Disposition Clinical Impression: Palpitations, Anxiety Disposition: HOME SELF-CARE Condition: Stable Instructions (If sedation given, give patient instructions): Heart Palpitations (ED), Anxiety (ED) Additional Instructions: Please return to the Emergency Department if symptoms worsen or any other concerns. Is patient prescribed a controlled substance at d/c from ED?: No Referrals: Yancy Conteh MD [Primary Care Provider] - 1-2 days Time of Disposition: 15:20
[2019-01-25 14:12] LABS: Basophils % (A) 1 %; Eosinophils # (A) 0.1 k/uL (0-0.7); Eosinophils % (A) 2 %; HCT 41.3 % (34.0-46.0); HGB 13.6 gm/dL (11.4-16.0); Lymphocytes # (A) 1.8 k/uL (1.0-4.8); Lymphocytes % (A) 26 %; MCH 30.6 pg (25.0-35.0); MCV 92.8 fL (80.0-100.0); Mean Platelet Volume 6.8; Monocytes # (A) 0.4 k/uL (0-1.0); Monocytes % (A) 5 %; Neutrophils # (A) 4.5 k/uL (1.3-7.7); Neutrophils % (A) 66 %; Platelet Count 333 k/uL (150-450); RBC 4.46 m/uL (3.80-5.40); RDW 12.4 % (11.5-15.5); WBC 6.9 k/uL (3.8-10.6)
--- NOTE | 2019-01-25 14:21 | XR ---
EXAMINATION TYPE: XR chest 2V DATE OF EXAM: 01/25/2019 COMPARISON: Prior chest x-ray 03/09/2017 HISTORY: Chest palpitations, dysrhythmia TECHNIQUE: Frontal and lateral views of the chest are obtained. FINDINGS: There is no focal air space opacity, pleural effusion, or pneumothorax seen. The cardiac silhouette size is within normal limits. The osseous structures are intact. There are overlying car diac leads. IMPRESSION: No acute cardiopulmonary process.
[2019-01-25 14:23] LABS: ALT 24 U/L (9-52); AST 30 U/L (14-36); African American GFR (CKD) >90 (>60 ml/min/1.73 sqM); Albumin 4.2 g/dL (3.5-5.0); Alkaline Phosphatase 46 U/L (38-126); Anion Gap 7 mmol/L; Blood Urea Nitrogen 11 mg/dL (7-17); Calcium 9.1 mg/dL (8.4-10.2); Carbon Dioxide 24 mmol/L (22-30); Chloride 108 mmol/L (98-107); Glucose 110 mg/dL (74-99); Magnesium 1.7 mg/dL (1.6-2.3); Non-African American GFR(CKD) >90 (>60 ml/min/1.73 sqM); Sodium 139 mmol/L (137-145); Total Bilirubin 0.9 mg/dL (0.2-1.3); Total Protein 7.2 g/dL (6.3-8.2)
[2019-01-25 14:31] LABS: INR 1.1 (<1.2); Partial Thromboplastin Time 22.9 sec (22.0-30.0); Prothrombin Time 11.5 sec (9.0-12.0)
[2019-01-25 14:34] LABS: Potassium 4.3 mmol/L (3.5-5.1)
[2019-01-25 15:04] LABS: Appearance,Urine Clear (Clear); Bilirubin,Urine Negative (Negative); Blood,Urine Negative (Negative); Color,Urine Yellow; Glucose,Urine (UA) Negative (Negative); Ketones,Urine Negative (Negative); Leukocyte Esterase,Urine Negative (Negative); Nitrite,Urine Negative (Negative); PH, Urine 5.5 (5.0-8.0); Protein,Urine Trace (Negative); Specific Gravity,Urine 1.022 (1.001-1.035); Urobilinogen,Urine <2.0 mg/dL (<2.0)
[2019-01-25 15:13] LABS: Amphetamine Screen,Urine Not Detected (NotDetected); Barbiturate Screen,Urine Not Detected (NotDetected); Benzodiazepines Screen,Urine Not Detected (NotDetected); Cocaine Screen,Urine Not Detected (NotDetected); Methadone Screen, Urine Not Detected (NotDetected); Opiate Screen,Urine Not Detected (NotDetected); Oxycodone Screen, Urine Not Detected (NotDetected); Phencyclidine Screen,Urine Not Detected (NotDetected); Tricyclic Antidepressant,Urine Not Detected (NotDetected); Urn Cannabinoid Scrn Detected (NotDetected)
[2019-01-25 16:04] VITALS: BP 118/82; PULSE 82; RESP 16
== END 2019-01-25 16:04 | disposition home or self-care (01) ==
LOC: EC 13:13
DX: F41.9 Anxiety disorder, unspecified (principal); F12.90 Cannabis use, unspecified, uncomplicated; F17.200 Nicotine dependence, unspecified, uncomplicated; Z88.1 Allergy status to other antibiotic agents; Z79.899 Other long term (current) drug therapy; Z82.49 Family history of ischemic heart disease and other diseases of the circulatory system
CPT/HCPCS: 36415; 93005; 80053; 83735; 84443; 84484; 85025; 85610; 85730; 81003; 81025; 80306; 71046; 99285; 96374; 96376; 96361; J2060

== ENCOUNTER 2019-02-15 09:46 | Emergency (ER) | payer OTHER ==
[2019-02-15] MEDS ORDERED: SODIUM CHLORIDE 0.9% 1,000 ML IV STA (09:49)
[2019-02-15] MEDS ORDERED: NALOXONE 0.4 MG/ML 1 ML VIAL IV STA (09:49)
--- NOTE | 2019-02-15 09:59 | ED ---
General Adult HPI - General Stated complaint: overdose Time Seen by Provider: 02/15/19 09:46 Source: patient, RN notes reviewed, old records reviewed - History of Present Illness Initial comments: This is a 28-year-old female who presents emergency Department with EMS because she was completely unresponsive [place] station. According to the patient who is now alert she states she did heroin this morning. EMS stated he had to give her 4 mg of Narcan before she became arousable. Patient was initially bagged when EMS arrived at the scene. Patient currently has no complaints and she does states she was not trying to commit suicide she was just trying to feel good. Patient denies any headache. Patient denies any lightheadedness or dizziness. Patient denies any chest pain difficulty breathing shortness breath. Patient denies any abdominal pain patient denies any nausea vomiting. Patient denies any other drug use or alcohol. - Related Data Home Medications Medication Instructions Recorded Confirmed No Known Home Medications 02/15/19 02/15/19 Allergies Allergy/AdvReac Type Severity Reaction Status Date / Time cefixime [From Suprax] Allergy Unknown Verified 02/15/19 10:45 Review of Systems ROS Statement: Those systems with pertinent positive or pertinent negative responses have been documented in the HPI. ROS Other: All systems not noted in ROS Statement are negative. Past Medical History Past Medical History: No Reported History Additional Past Medical History / Comment(s): previous heroin abuse History of Any Multi-Drug Resistant Organisms: None Reported Past Surgical History: No Surgical Hx Reported Past Psychological History: Anxiety, Depression Smoking Status: Current every day smoker Past Alcohol Use History: None Reported Past Drug Use History: Heroin, Marijuana General Exam - General Exam Comments Initial Comments: GENERAL: Patient is well-developed and well-nourished. Patient is nontoxic and well- hydrated and is in no acute distress. Patient is a little bit lethargic but is able to answer all questions accurately ENT: Neck is soft and supple. No significant lymphadenopathy is noted. Oropharynx is clear. Moist mucous membranes. Neck has full range of motion without eliciting any pain. EYES: The sclera were anicteric and conjunctiva were pink and moist. Extraocular movements were intact and pupils were equal round and reactive to light. E yelids were unremarkable. PULMONARY: Unlabored respirations. Good breath sounds bilaterally. No audible rales rhonchi or wheezing was noted. CARDIOVASCULAR: There is a regular rate and rhythm without any murmurs gallops or rubs. ABDOMEN: Soft and nontender with normal bowel sounds. SKIN: Skin is clear with no lesions or rashes and otherwise unremarkable. NEUROLOGIC: Patient is alert and oriented x3. Cranial nerves II through XII are grossly intact. Motor and sensory are also intact. Normal speech, volume and content. Symmetrical smile. MUSCULOSKELETAL: Normal extremities with adequate strength and full range of motion. No lower extremity swelling or edema. No calf tenderness. LYMPHATICS: No significant lymphadenopathy is noted PSYCHIATRIC: Normal psychiatric evaluation. Patient denies any suicidal or homicidal ideations. Course Vital Signs 02/15/19 09:46 Temperature 98.2 F Pulse Rate 80 Respiratory 18 Rate Blood Pressure 118/77 O2 Sat by Pulse 98 Oximetry Medical Decision Making - Medical Decision Making EKG shows a normal sinus rhythm at 83 bpm NM interval is 166 dresses 94 QT interval 414 QTC is 46 per patient's EKG shows no ST segment elevation or depression or T wave abnormalities are noted. I ordered a chest x-ray the patient patient refused the x-ray. Wait for all of her laboratory back patient wants to be discharged immediately. Patient is alert and oriented 3. Patient has a boyfriend in the room with her. - Lab Data Result diagrams: 02/15/19 10:13 02/15/19 10:13 Lab Results 02/15/19 02/15/19 02/15/19 Range/Units 10:13 10:13 10:13 WBC 6.2 (3.8-10.6) k/uL RBC 4.24 (3.80-5.40) m/uL Hgb 12.8 (11.4-16.0) gm/dL Hct 39.6 (34.0-46.0) % MCV 93.4 (80.0-100.0) fL MCH 30.3 (25.0-35.0) pg MCHC 32.4 (31.0-37.0) g/dL RDW 12.3 (11.5-15.5) % Plt Count 262 (150-450) k/uL Neutrophils % 48 % Lymphocytes % 37 % Monocytes % 8 % Eosinophils % 3 % Basophils % 1 % Neutrophils # 3.0 (1.3-7.7) k/uL Lymphocytes # 2.3 (1.0-4.8) k/uL Monocytes # 0.5 (0-1.0) k/uL Eosinophils # 0.2 (0-0.7) k/uL Basophils # 0.0 (0-0.2) k/uL Sodium 141 (137-145) mmol/L Potassium 3.6 (3.5-5.1) mmol/L Chloride 107 (98-107) mmol/L Carbon Dioxide 21 L (22-30) mmol/L Anion Gap 13 mmol/L BUN 15 (7-17) mg/dL Creatinine 0.83 (0.52-1.04) mg/dL Est GFR (CKD-EPI)AfAm >90 (>60 ml/min/1.73 sqM) Est GFR (CKD-EPI)NonAf >90 (>60 ml/min/1.73 sqM) Glucose 214 H (74-99) mg/dL Calcium 9.0 (8.4-10.2) mg/dL Total Bilirubin 0.6 (0.2-1.3) mg/dL AST 33 (14-36) U/L ALT 22 (4-34) U/L Alkaline Phosphatase 69 (38-126) U/L Total Protein 6.5 (6.3-8.2) g/dL Albumin 3.9 (3.5-5.0) g/dL Urine HCG, Qual Not Detected (Not Detectd) Salicylates <1.0 mg/dL Acetaminophen <10.0 ug/mL Serum Alcohol <10 mg/dL Disposition Clinical Impression: Accidental drug overdose, Heroin abuse Disposition: Left Against Medical Advice Instructions (If sedation given, give patient instructions): Adult Overdose (ED) Referrals: Yancy Conteh MD [Primary Care Provider] - 1-2 days Time of Disposition: 10:50
[2019-02-15 10:24] VITALS: BP 118/77; PULSE 80; RESP 18; TEMP 98.2
[2019-02-15 10:35] LABS: Basophils % (A) 1 %; Eosinophils # (A) 0.2 k/uL (0-0.7); Eosinophils % (A) 3 %; HCT 39.6 % (34.0-46.0); HGB 12.8 gm/dL (11.4-16.0); Lymphocytes # (A) 2.3 k/uL (1.0-4.8); Lymphocytes % (A) 37 %; MCH 30.3 pg (25.0-35.0); MCHC 32.4 g/dL (31.0-37.0); MCV 93.4 fL (80.0-100.0); Mean Platelet Volume 7.7; Monocytes # (A) 0.5 k/uL (0-1.0); Monocytes % (A) 8 %; Neutrophils % (A) 48 %; Platelet Count 262 k/uL (150-450); RBC 4.24 m/uL (3.80-5.40); RDW 12.3 % (11.5-15.5); WBC 6.2 k/uL (3.8-10.6)
[2019-02-15 10:42] LABS: ALT 22 U/L (4-34); AST 33 U/L (14-36); Acetaminophen <10.0 ug/mL; African American GFR (CKD) >90 (>60 ml/min/1.73 sqM); Albumin 3.9 g/dL (3.5-5.0); Alcohol <10 mg/dL; Alkaline Phosphatase 69 U/L (38-126); Anion Gap 13 mmol/L; Blood Urea Nitrogen 15 mg/dL (7-17); Carbon Dioxide 21 mmol/L (22-30); Chloride 107 mmol/L (98-107); Glucose 214 mg/dL (74-99); Non-African American GFR(CKD) >90 (>60 ml/min/1.73 sqM); Potassium 3.6 mmol/L (3.5-5.1); Salicylate <1.0 mg/dL; Sodium 141 mmol/L (137-145); Total Bilirubin 0.6 mg/dL (0.2-1.3); Total Protein 6.5 g/dL (6.3-8.2)
[2019-02-15 10:54] LABS: Amphetamine Screen,Urine Not Detected (NotDetected); Cocaine Screen,Urine Not Detected (NotDetected); Opiate Screen,Urine Detected (NotDetected); Phencyclidine Screen,Urine Not Detected (NotDetected); Urn Cannabinoid Scrn Detected (NotDetected)
[2019-02-15 10:55] LABS: Barbiturate Screen,Urine Not Detected (NotDetected); Benzodiazepines Screen,Urine Detected (NotDetected); Methadone Screen, Urine Not Detected (NotDetected); Oxycodone Screen, Urine Not Detected (NotDetected); Tricyclic Antidepressant,Urine Not Detected (NotDetected)
== END 2019-02-15 11:00 | disposition left against medical advice (07) ==
LOC: EC 09:46
DX: T40.1X1A Poisoning by heroin, accidental (unintentional), initial encounter (principal); F11.10 Opioid abuse, uncomplicated; F17.200 Nicotine dependence, unspecified, uncomplicated; Z88.1 Allergy status to other antibiotic agents; Z53.20 Procedure and treatment not carried out because of patient's decision for unspecified reasons
CPT/HCPCS: 82075; 36415; 93005; 80053; 84484; 85025; 81025; 80306; 83520; 99285; G0480 ×2; 80320; 80329

== ENCOUNTER → 2019-03-13 | Outpatient (CLI) | payer OTHER ==
[2019-03-13 11:48] LABS: Basophils % (A) 0 %; Eosinophils # (A) 0.1 k/uL (0-0.7); Eosinophils % (A) 2 %; HCT 41.5 % (34.0-46.0); HGB 13.4 gm/dL (11.4-16.0); Lymphocytes % (A) 30 %; MCH 30.1 pg (25.0-35.0); MCHC 32.4 g/dL (31.0-37.0); MCV 92.8 fL (80.0-100.0); Mean Platelet Volume 7.5; Monocytes # (A) 0.4 k/uL (0-1.0); Monocytes % (A) 6 %; Neutrophils # (A) 4.1 k/uL (1.3-7.7); Neutrophils % (A) 61 %; Platelet Count 312 k/uL (150-450); RBC 4.46 m/uL (3.80-5.40); WBC 6.7 k/uL (3.8-10.6)
[2019-03-13 13:49] LABS: Erythrocyte Sedimentation Rate 2 mm/hr (0-20)
[2019-03-13 17:37] LABS: Albumin 4.4 g/dL (3.80-4.90); Albumin/Globulin Ratio 2.2 (1.60-3.17); Bilirubin, Conjugated 0.2 mg/dL (0.20-0.40); Bilirubin,Unconjugated 0.4 mg/dL; Total Bilirubin 0.6 mg/dL (0.2-1.2); Total Protein 6.4 g/dL (6.2-8.2)
[2019-03-15 11:16] LABS: Gliadin AB IgA, Deaminated POSITIVE (NEGATIVE); Gliadin AB IgA, Unit >250.0 U/mL; Gliadin AB IgG, Deaminated POSITIVE (NEGATIVE)
== END | disposition home or self-care (01) ==
LOC: LABWHC1 10:47
PROVIDERS: ATTEND Physician Assistant
DX: B18.2 Chronic viral hepatitis C (principal); K52.9 Noninfective gastroenteritis and colitis, unspecified; R63.4 Abnormal weight loss
CPT/HCPCS: 36415; 80076; 83516; 84443; 85025; 85652; 87522

== ENCOUNTER 2019-03-18 21:55 | Emergency (ER) | payer OTHER ==
[2019-03-18 21:59] VITALS: BP 139/85; PULSE 76; RESP 16; TEMP 98.4
[2019-03-18 23:06] LABS: Appearance,Urine Clear (Clear); Bacteria,Urine Rare /hpf; Bilirubin,Urine Negative (Negative); Blood,Urine Negative (Negative); Color,Urine Yellow; Glucose,Urine (UA) Negative (Negative); Ketones,Urine Negative (Negative); Leukocyte Esterase,Urine Trace (Negative); Mucus,Urine Rare /hpf; Nitrite,Urine Negative (Negative); PH, Urine 6.5 (5.0-8.0); Protein,Urine Negative (Negative); RBC,Urine <1 /hpf (0-5); Specific Gravity,Urine 1.035 (1.001-1.035); Squamous Epithelial Cell,Urine 1 /hpf (0-4); WBC,Urine <1 /hpf (0-5)
[2019-03-18 23:18] LABS: Basophils % (A) 0 %; Eosinophils # (A) 0.2 k/uL (0-0.7); Eosinophils % (A) 2 %; HCT 36.5 % (34.0-46.0); HGB 12.7 gm/dL (11.4-16.0); Lymphocytes # (A) 2.7 k/uL (1.0-4.8); Lymphocytes % (A) 29 %; MCH 31.6 pg (25.0-35.0); MCHC 34.7 g/dL (31.0-37.0); MCV 91.2 fL (80.0-100.0); Mean Platelet Volume 7.6; Monocytes # (A) 0.4 k/uL (0-1.0); Monocytes % (A) 5 %; Neutrophils # (A) 5.8 k/uL (1.3-7.7); Neutrophils % (A) 63 %; Platelet Count 342 k/uL (150-450); RBC 4.01 m/uL (3.80-5.40); WBC 9.2 k/uL (3.8-10.6)
[2019-03-18] MEDS ORDERED: IVERMECTIN 3 MG TABLET PO STA (23:20)
[2019-03-18 23:27] LABS: ALT 17 U/L (4-34); AST 31 U/L (14-36); African American GFR (CKD) >90 (>60 ml/min/1.73 sqM); Albumin 3.9 g/dL (3.5-5.0); Alkaline Phosphatase 70 U/L (38-126); Anion Gap 8 mmol/L; Blood Urea Nitrogen 19 mg/dL (7-17); Carbon Dioxide 22 mmol/L (22-30); Chloride 109 mmol/L (98-107); Glucose 83 mg/dL (74-99); Non-African American GFR(CKD) >90 (>60 ml/min/1.73 sqM); Potassium 4.4 mmol/L (3.5-5.1); Sodium 139 mmol/L (137-145); Total Bilirubin 0.5 mg/dL (0.2-1.3); Total Protein 6.5 g/dL (6.3-8.2)
--- NOTE | 2019-03-18 23:54 | ED ---
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 Patient reports that she has been having diarrhea in the mornings for approximately 2 years. Patient reports that this is baseline for her. Patient port that she is feeling at baseline. However today she urinated when she went to [facility] pathology noted there was a worm in the toilet bowl. Denies any perirectal itching or any other complaints. Denies any chance of being . Does report that last month she did have some vaginal odor, however noted that that has resolved. Denies any other complaints. Systemic: Pt denies fatigue, fever/chills, rash. Pt denies weakness, night sweats, weight loss. Neuro: Pt denies headache, visual disturbances, syncope or pre-syncope. HEENT: Pt denies ocular discharge or irritation, otalgia, rhinorrhea, phary ngitis or notable lymphadenopathy. Cardiopulmonary: Pt denies chest pain, SOB, heart palpitations, dyspnea on exertion. Abdominal/GI: Pt denies abdominal pain, n/v/d. : Pt denies dysuria, burning w/ urination, frequency/urgency. Denies new onset urinary or bowel incontinence. MSK: Pt denies myalgia, loss of strength or function in extremities. Neuro: Pt denies new onset weakness, paresthesias. - Related Data Home Medications Medication Instructions Recorded Confirmed No Known Home Medications 02/15/19 02/15/19 Allergies Allergy/AdvReac Type Severity Reaction Status Date / Time cefixime [From Suprax] Allergy Unknown Verified 03/18/19 21:59 Review of Systems ROS Statement: Those systems with pertinent positive or pertinent negative responses have been documented in the HPI. ROS Other: All systems not noted in ROS Statement are negative. Past Medical History Past Medical History: No Reported History Additional Past Medical History / Comment(s): previous heroin abuse History of Any Multi-Drug Resistant Organisms: None Reported Past Surgical History: No Surgical Hx Reported Past Psychological History: Anxiety, Depression Smoking Status: Former smoker Past Alcohol Use History: None Reported Past Drug Use History: Heroin, Marijuana General Exam - General Exam Comments Initial Comments: Constitutional: NAD, AOX3, Pt has pleasant affect. HEENT: NC/AT, trachea midline, neck supple, no lymphadenopathy. Posterior pharynx non erythematous, without exudates. External ears appear normal, without discharge. Mucous membranes moist. Eyes PERRLA, EOM intact. There is no scleral icterus. No pallor noted. Cardiopulmonary: RRR, no murmurs, rubs or gallops, no JVD noted. Lungs CTAB in anterior and posterior womack. No peripheral edema. Abdominal exam: Abdomen soft and non-distended. Abdomen non-tender to palpation in all 4 quadrants. Bowel sounds active in LLQ. No hepatosplenomegaly. No ecchymosis Neuro: CN II-XII grossly intact. No nuchal rigidity. No raccon eyes, no handley sign, no hemotympanum. No cervical spinal tenderness. MSK: No posterior calf tenderness bilaterally, homans sign negative bilaterally. Posterior tibialis and radial pulse +2 bilaterally. Sensation intact in upper and lower extremities. Full active ROM in upper and lower extremities, 5/5 stregnth. Limitations: no limitations Course Vital Signs 03/18/19 21:56 Temperature 98.4 F Pulse Rate 76 Respiratory 16 Rate Blood Pressure 139/85 O2 Sat by Pulse 98 Oximetry Medical Decision Making - Medical Decision Making 28-year-old female patient presents to ED for evaluation of forearm and toilet bowl. Patient vital signs are stable, afebrile. Physical exam did not acute pathology. Patient recommended and declined pelvic exam. Laboratory investigations are non-impressive. Liver enzymes are within normal limits. Worm was brought into emergency department and does resemble a roundworm. Patient denies any out of country travel or any ingestion of raw meat. Patient does for that she had a history of hepatitis C that was treated with harvoni. Patient was administered one dose of Ivermectin. Patient will be discharged. Patient to follow up with primary care provider tomorrow and have liver enzymes rechecked. Will return to ER if condition worsens. Case discussed and pt seen by Dr. Owen. - Lab Data Result diagrams: 03/18/19 22:39 03/18/19 22:39 Lab Results 03/18/19 03/18/19 03/18/19 Range/Units 22:39 22:39 22:58 WBC 9.2 (3.8-10.6) k/uL RBC 4.01 (3.80-5.40) m/uL Hgb 12.7 (11.4-16.0) gm/dL Hct 36.5 (34.0-46.0) % MCV 91.2 (80.0-100.0) fL MCH 31.6 (25.0-35.0) pg MCHC 34.7 (31.0-37.0) g/dL RDW 12.0 (11.5-15.5) % Plt Count 342 (150-450) k/uL Neutrophils % 63 % Lymphocytes % 29 % Monocytes % 5 % Eosinophils % 2 % Basophils % 0 % Neutrophils # 5.8 (1.3-7.7) k/uL Lymphocytes # 2.7 (1.0-4.8) k/uL Monocytes # 0.4 (0-1.0) k/uL Eosinophils # 0.2 (0-0.7) k/uL Basophils # 0.0 (0-0.2) k/uL Sodium 139 (137-145) mmol/L Potassium 4.4 (3.5-5.1) mmol/L Chloride 109 H (98-107) mmol/L Carbon Dioxide 22 (22-30) mmol/L Anion Gap 8 mmol/L BUN 19 H (7-17) mg/dL Creatinine 0.60 (0.52-1.04) mg/dL Est GFR (CKD-EPI)AfAm >90 (>60 ml/min/1.73 sqM) Est GFR (CKD-EPI)NonAf >90 (>60 ml/min/1.73 sqM) Glucose 83 (74-99) mg/dL Calcium 9.0 (8.4-10.2) mg/dL Total Bilirubin 0.5 (0.2-1.3) mg/dL AST 31 (14-36) U/L ALT 17 (4-34) U/L Alkaline Phosphatase 70 (38-126) U/L Total Protein 6.5 (6.3-8.2) g/dL Albumin 3.9 (3.5-5.0) g/dL Urine Color Urine Appearance (Clear) Urine pH (5.0-8.0) Ur Specific [place] (1.001-1.035) Urine Protein (Negative) Urine Glucose (UA) (Negative) Urine Ketones (Negative) Urine Blood (Negative) Urine Nitrite (Negative) Urine Bilirubin (Negative) Urine Urobilinogen (<2.0) mg/dL Ur Leukocyte Esterase (Negative) Urine RBC (0-5) /hpf Urine WBC (0-5) /hpf Ur Squamous Epith Cells (0-4) /hpf Urine Bacteria (None) /hpf Urine Mucus (None) /hpf Urine HCG, Qual Not Detected (Not Detectd) 03/18/19 Range/Units 22:58 WBC (3.8-10.6) k/uL RBC (3.80-5.40) m/uL Hgb (11.4-16.0) gm/dL Hct (34.0-46.0) % MCV (80.0-100.0) fL MCH (25.0-35.0) pg MCHC (31.0-37.0) g/dL RDW (11.5-15.5) % Plt Count (150-450) k/uL Neutrophils % % Lymphocytes % % Monocytes % % Eosinophils % % Basophils % % Neutrophils # (1.3-7.7) k/uL Lymphocytes # (1.0-4.8) k/uL Monocytes # (0-1.0) k/uL Eosinophils # (0-0.7) k/uL Basophils # (0-0.2) k/uL Sodium (137-145) mmol/L Potassium (3.5-5.1) mmol/L Chloride (98-107) mmol/L Carbon Dioxide (22-30) mmol/L Anion Gap mmol/L BUN (7-17) mg/dL Creatinine (0.52-1.04) mg/dL Est GFR (CKD-EPI)AfAm (>60 ml/min/1.73 sqM) Est GFR (CKD-EPI)NonAf (>60 ml/min/1.73 sqM) Glucose (74-99) mg/dL Calcium (8.4-10.2) mg/dL Total Bilirubin (0.2-1.3) mg/dL AST (14-36) U/L ALT (4-34) U/L Alkaline Phosphatase (38-126) U/L Total Protein (6.3-8.2) g/dL Albumin (3.5-5.0) g/dL Urine Color Yellow Urine Appearance Clear (Clear) Urine pH 6.5 (5.0-8.0) Ur Specific [place] 1.035 (1.001-1.035) Urine Protein Negative (Negative) Urine Glucose (UA) Negative (Negative) Urine Ketones Negative (Negative) Urine Blood Negative (Negative) Urine Nitrite Negative (Negative) Urine Bilirubin Negative (Negative) Urine Urobilinogen 2.0 (<2.0) mg/dL Ur Leukocyte Esterase Trace H (Negative) Urine RBC <1 (0-5) /hpf Urine WBC <1 (0-5) /hpf Ur Squamous Epith Cells 1 (0-4) /hpf Urine Bacteria Rare H (None) /hpf Urine Mucus Rare H (None) /hpf Urine HCG, Qual (Not Detectd) Disposition Clinical Impression: Parasitic infection Disposition: HOME SELF-CARE Condition: Stable Additional Instructions: Follow-up with primary care provider tomorrow. Have liver enzymes rechecked. Return to ER if condition worsens in any way. Is patient prescribed a controlled substance at d/c from ED?: No Referrals: Yancy Conteh MD [Primary Care Provider] - 1-2 days
== END 2019-03-19 00:03 | disposition home or self-care (01) ==
LOC: EC 21:55
DX: B89 Unspecified parasitic disease (principal); Z88.1 Allergy status to other antibiotic agents; Z87.891 Personal history of nicotine dependence
CPT/HCPCS: 36415; 80053; 81001; 81025; 85025; 99284

== ENCOUNTER 2019-04-09 15:29 | Emergency (ER) | payer OTHER ==
[2019-04-09 15:42] VITALS: TEMP 98.1
[2019-04-09 16:30] LABS: Appearance,Urine Clear (Clear); Bilirubin,Urine Negative (Negative); Blood,Urine Negative (Negative); Color,Urine Yellow; Glucose,Urine (UA) Negative (Negative); Ketones,Urine Negative (Negative); Leukocyte Esterase,Urine Negative (Negative); Nitrite,Urine Negative (Negative); Protein,Urine Negative (Negative); Specific Gravity,Urine 1.027 (1.001-1.035); Urobilinogen,Urine <2.0 mg/dL (<2.0)
[2019-04-09] MEDS ORDERED: metroNIDAZOLE 500 MG TAB PO STA (16:53)
--- NOTE | 2019-04-09 17:00 | ED ---
Female Urogenital HPI - General Chief complaint: Urogenital Stated complaint: Female Time Seen by Provider: 04/09/19 15:56 Source: patient, RN notes reviewed, old records reviewed Mode of arrival: ambulatory Limitations: no limitations - History of Present Illness Initial comments: 20-year-old female presents with 1 week of vaginal discharge and odor. Patient reports she is concerned that she has BV. Patient states that she started to notice his discharge after having unprotected sex with her current boyfriend. Patient states that she has no pelvic pain. Denies dysuria. She denies any concern for at this time. - Related Data Previous Rx's Medication Instructions Recorded metroNIDAZOLE [Flagyl] 500 mg PO BID #14 tab 04/09/19 Allergies Allergy/AdvReac Type Severity Reaction Status Date / Time cefixime [From Suprax] Allergy Unknown Verified 04/09/19 15:42 Review of Systems ROS Statement: Those systems with pertinent positive or pertinent negative responses have been documented in the HPI. ROS Other: All systems not noted in ROS Statement are negative. Past Medical History Past Medical History: No Reported History Additional Past Medical History / Comment(s): previous heroin abuse History of Any Multi-Drug Resistant Organisms: None Reported Past Surgical History: No Surgical Hx Reported Past Psychological History: Anxiety, Depression Smoking Status: Former smoker Past Alcohol Use History: None Reported Past Drug Use History: Heroin, Marijuana General Exam - General Exam Comments Initial Comments: 20-year-old female. Alert and oriented 3. No significant distress. General: Well appearing, well nourished, in no distress. Oriented x 3, normal mood and affect . Ambulating without difficulty. Skin: Good turgor, no rash, unusual bruising or prominent lesions Hair: Normal texture and distribution. HEENT: Head: Normocephalic, atraumatic, no visible or palpable masses, depress ions, or scaring. Eyes: Visual acuity intact, conjunctiva clear, sclera non-icteric, EOM intact, PERRL. Ears: EACs clear, TMs translucent & cone of light visualized. hearing intact. Nose: No external lesions, mucosa non-inflamed, septum and turbinates normal Mouth: Mucous membranes moist, no mucosal lesions. Heart: No cardiomegaly or thrills; regular rate and rhythm, no murmur or gallop Lungs: Clear to auscultation and percussion Abdomen: Bowel sounds normal, no tenderness, organomegaly, masses, or hernia Musculoskeletal: Normal gait and station. No misalignment, asymmetry, crepitation, defects, tenderness, masses, effusions, decreased range of motion, instability, atrophy or abnormal strength or tone in the head, neck, spine, ribs, pelvis or extremities. Neurologic: CN 2-12 normal. Sensation to pain, touch, and proprioception normal. DTRs normal in upper and lower extremities. No pathologic reflexes. Psychiatric: Oriented X3, intact recent and remote memory, judgment and insight, normal mood and affect. Pelvic: Vagina and cervix without lesions. Some white discharge is noted. Fishy odor. Return for bacterial vaginosis. No adnexal tenderness. Limitations: no limitations Course Vital Signs 04/09/19 04/09/19 15:38 17:10 Temperature 98.1 F 98.1 F Pulse Rate 77 71 Respiratory 20 16 Rate Blood Pressure 123/79 122/80 O2 Sat by Pulse 96 98 Oximetry Medical Decision Making - Medical Decision Making 20-year-old female presents with vaginal discharge for a week after having unprotected sex with boyfriend. She did have some white discharge, fishy odor concern for BV. Trichomonas test is negative. Discussed waiting for chlamydia and gonorrhea culture. Should no adnexal tenderness. She denies concern for STD. I discussed the Patient treated this time with yl and advised following up with her PCP and abstain from sex for 2 weeks. Patient is agrees to treatment plan will comply. - Lab Data Lab Results 04/09/19 04/09/19 04/09/19 Range/Units 16:00 16:00 16:00 Urine Color Yellow Urine Appearance Clear (Clear) Urine pH 6.0 (5.0-8.0) Ur Specific Pound 1.027 (1.001-1.035) Urine Protein Negative (Negative) Urine Glucose (UA) Negative (Negative) Urine Ketones Negative (Negative) Urine Blood Negative (Negative) Urine Nitrite Negative (Negative) Urine Bilirubin Negative (Negative) Urine Urobilinogen <2.0 (<2.0) mg/dL Ur Leukocyte Esterase Negative (Negative) Urine HCG, Qual Not Detected (Not Detectd) Trichomonas Ag (Rapid) Negative (Negative) Disposition Clinical Impression: Bacterial vaginosis Disposition: HOME SELF-CARE Condition: Good Instructions (If sedation given, give patient instructions): Bacterial Vaginosis (ED) Additional Instructions: Patient should abstain from sex for 2 weeks. Please use medication as discussed. Please follow up with family doctor if symptoms have not improved over the next two days. Please return to the emergency room if your symptoms increase or worsen or for any other concerns. Prescriptions: metroNIDAZOLE [Flagyl] 500 mg PO BID #14 tab Is patient prescribed a controlled substance at d/c from ED?: No Referrals: Yancy Conteh MD [Primary Care Provider] - 1-2 days Time of Disposition: 16:59
[2019-04-09 17:11] VITALS: BP 122/80; PULSE 71; RESP 16
== END 2019-04-09 17:10 | disposition home or self-care (01) ==
LOC: EC 15:29
DX: N76.0 Acute vaginitis (principal); B96.89 Other specified bacterial agents as the cause of diseases classified elsewhere; Z88.1 Allergy status to other antibiotic agents; Z87.891 Personal history of nicotine dependence
CPT/HCPCS: 81003; 81025; 87070; 87491; 87591; 87808; 99284

== ENCOUNTER 2019-07-15 09:02 | Emergency (ER) | payer OTHER ==
[2019-07-15 09:11] VITALS: RESP 18; TEMP 98.2
[2019-07-15] MEDS ORDERED: KETOROLAC 30 MG/ML 1 ML VIAL IM STA (09:28)
[2019-07-15] MEDS ORDERED: METHOCARBAMOL 750 MG TAB PO STA (09:29)
--- NOTE | 2019-07-15 09:33 | ED ---
Neck Injury/Pain HPI - General Chief Complaint: Neck Pain/Injury Stated Complaint: Neck pain Time Seen by Provider: 07/15/19 09:10 Mode of arrival: ambulatory Limitations: no limitations - History of Present Illness Initial Comments: The patient is a 29-year-old female resents emergency room with reported neck stiffness and pain. She states that she went to bed yesterday feeling well. She woke this morning to bilateral paraspinal cervical neck pain. States pain is worse with left and right rotation of her neck as well as flexion. Pain only extends from the base of her neck down to the mid thoracic region. Denies any lumbar back pain. No fevers or chills. Does have a history of intravenous drug use. Last use was in January. Denies headaches or visual changes. No upper or lower extremity weakness. Patient did not attempt to take any medications at home for symptoms. Patient has a history of similar in the past. Patient states that she has been seen multiple times in her emergency room for similar complaints. Review of the patient's x-ray demonstrates reversal of normal cervical curvature however no acute findings. The patient denies concern for as she is on her menstrual cycle. There are no other alleviating, precipitating or modifying factors - Related Data Previous Rx's Medication Instructions Recorded metroNIDAZOLE [Flagyl] 500 mg PO BID #14 tab 04/09/19 Naproxen [Naprosyn] 500 mg PO Q12HR #20 tab 07/15/19 Allergies Allergy/AdvReac Type Severity Reaction Status Date / Time cefixime [From Suprax] Allergy Unknown Verified 07/15/19 20:22 narcotics AdvReac recovering Uncoded 07/15/19 20:22 addict Review of Systems ROS Statement: Those systems with pertinent positive or pertinent negative responses have been documented in the HPI. ROS Other: All systems not noted in ROS Statement are negative. Past Medical History Past Medical History: No Reported History Additional Past Medical History / Comment(s): previous heroin abuse History of Any Multi-Drug Resistant Organisms: None Reported Past Surgical History: No Surgical Hx Reported Past Psychological History: Anxiety, Depression Smoking Status: Current every day smoker Past Alcohol Use History: None Reported Past Drug Use History: None Reported General Exam Limitations: no limitations General appearance: alert, in no apparent distress Head exam: Present: atraumatic, normocephalic, normal inspection Eye exam: Present: normal appearance, PERRL, EOMI. Absent: scleral icterus, conjunctival injection, periorbital swelling ENT exam: Present: normal exam, mucous membranes moist Neck exam: Present: tenderness (paraspinal muscles from base of neck to T2. No midline spinous process tenderness. No step offs. Equal pulses bilateral upper extremities). Absent: meningismus, full ROM, lymphadenopathy, thyromegaly Course Vital Signs 07/15/19 07/15/19 09:10 10:54 Temperature 98.2 F Pulse Rate 73 76 Respiratory 18 18 Rate Blood Pressure 142/91 129/89 O2 Sat by Pulse 99 99 Oximetry Medical Decision Making - Medical Decision Making Arrival the patient is placed into room 11. A thorough history and physical exam is performed. The patient is red with paraspinal muscle pain which is reproducible upon movement. No nuchal rigidity or lower back pain. I discussed the diagnosis, differential and treatment options. The patient does have a history of IVDA however refuses headaches, fevers, chills, upper extremity weakness. No recent chiropractic manipuation of the neck. Denies history of paraspinal abscess. The patient's refuses narcotics as she states last time she was hospitalized it did cause a relapse. I did provide the patient with a dose of Robaxin and Toradol in the emergency room. The patient does have improvement is able to move her head left and right as well as up and down. I did recommend treatment with heating pads, Naprosyn. She is requesting narcotics to further improve her pain however he stated that I'm apprehensive because of her history. The patient understood this and was agreeable. I did inform her that I could provide her with a prescription for Naprosyn and give her a Flexeril starter pack. The patient will be discharged home and is to follow-up with her primary care physician. As this is not the first and the patient has suffered from this can a pain she may need an MRI. She has any new or worsening symptoms she should return to the emergency room. Strip return parameters were discussed the patient was discharged home in stable condition Disposition Clinical Impression: Neck strain Disposition: HOME SELF-CARE Condition: Stable Instructions (If sedation given, give patient instructions): Cervical Strain (ED) Additional Instructions: Please follow up with the primary care physician. If your pain persists, you may need an MRI. Return to the emergency room for any new or worsening symptoms Prescriptions: Naproxen [Naprosyn] 500 mg PO Q12HR #20 tab Is patient prescribed a controlled substance at d/c from ED?: No Referrals: Yancy Conteh MD [Primary Care Provider] - 1-2 days Geo Villalpando DO [Doctor of Osteopathic Medicine] - 1-2 days Time of Disposition: 09:50
[2019-07-15] MEDS ORDERED: CYCLOBENZAPRINE 10MG STARTER 3 TAB BTL PO STA (10:37)
[2019-07-15 10:55] VITALS: BP 129/89; PULSE 76
== END 2019-07-15 10:54 | disposition home or self-care (01) ==
LOC: EC 09:02
DX: S16.1XXA Strain of muscle, fascia and tendon at neck level, initial encounter (principal); F17.200 Nicotine dependence, unspecified, uncomplicated; Z88.1 Allergy status to other antibiotic agents; Z88.5 Allergy status to narcotic agent; X58.XXXA Exposure to other specified factors, initial encounter
CPT/HCPCS: 99283 ×2; 96372 ×2; 72050; J1885

== ENCOUNTER 2019-07-15 20:17 | Emergency (ER) | payer OTHER ==
[2019-07-15] MEDS ORDERED: METHOCARBAMOL 750 MG TAB PO STA (20:59)
--- NOTE | 2019-07-15 21:14 | XR ---
EXAMINATION TYPE: XR cervical spine comp DATE OF EXAM: 07/15/2019 COMPARISON: NONE HISTORY: Neck pain TECHNIQUE: 5 views FINDINGS: There is some straightening of the vertebra that is probably positional. Disc spaces are no rmal. Posterior elements are intact. There are no cervical ribs. Neuroforamina are widely patent. Isaac antoaxial facet joint is normal. IMPRESSION: Mild straightening. Spasm is possible. Otherwise negative exam. No fracture.
--- NOTE | 2019-07-15 21:23 | ED ---
General Adult HPI - General Chief complaint: Neck Pain/Injury Stated complaint: Neck Pain Time Seen by Provider: 07/15/19 20:24 Source: patient Mode of arrival: ambulatory Limitations: no limitations - History of Present Illness Initial comments: Patient is a 29-year-old female presenting to the emergency department with a chief complaint of neck pain. Patient states she was in the ED earlier today for the same chief and was offered an x-ray of the neck but she refused. States she returned 40 x-ray. States she took a Flexeril earlier today with no significant improvement in her symptoms. States the pain is located in bilateral paraspinal region with no significant radiation. Does report limited range of motion with left and right rotation. More to the right versus left. Denies any night sweats fevers or chills. Does have history of IVD with the last use several months ago. Denies any headaches Or visual changes. - Related Data Previous Rx's Medication Instructions Recorded metroNIDAZOLE [Flagyl] 500 mg PO BID #14 tab 04/09/19 Naproxen [Naprosyn] 500 mg PO Q12HR #20 tab 07/15/19 Allergies Allergy/AdvReac Type Severity Reaction Status Date / Time cefixime [From Suprax] Allergy Unknown Verified 07/15/19 20:22 narcotics AdvReac recovering Uncoded 07/15/19 20:22 addict Review of Systems ROS Statement: Those systems with pertinent positive or pertinent negative responses have been documented in the HPI. ROS Other: All systems not noted in ROS Statement are negative. Past Medical History Past Medical History: No Reported History Additional Past Medical History / Comment(s): previous heroin abuse History of Any Multi-Drug Resistant Organisms: None Reported Past Surgical History: No Surgical Hx Reported Past Psychological History: Anxiety, Depression Smoking Status: Current every day smoker Past Alcohol Use History: None Reported Past Drug Use History: None Reported General Exam Limitations: no limitations General appearance: alert, in no apparent distress Head exam: Present: atraumatic, normocephalic, normal inspection Eye exam: Present: normal appearance, PERRL, EOMI Pupils: Present: normal accommodation ENT exam: Present: normal exam, normal oropharynx, mucous membranes moist, TM's normal bilaterally, normal external ear exam Neck exam: Present: normal inspection, tenderness (Bilateral tenderness in the paraspinal region of the neck. No nuchal rigidity. Negative Brudzinski sign.). Absent: meningismus, full ROM (Limited range of motion, especially with right rotation.) Respiratory exam: Present: normal lung sounds bilaterally. Absent: respiratory distress, rales Cardiovascular Exam: Present: regular rate, normal rhythm, normal heart sounds Extremities exam: Present: normal inspection, full ROM Back exam: Present: normal inspection, full ROM Neurological exam: Present: alert, oriented X3 Psychiatric exam: Present: normal affect, normal mood Skin exam: Present: warm, dry, intact, normal color Course Vital Signs 07/15/19 20:20 Temperature 98.9 F Pulse Rate 90 Respiratory 18 Rate Blood Pressure 138/94 O2 Sat by Pulse 98 Oximetry Medical Decision Making - Medical Decision Making Patient is a 29-year-old female presenting to the emergency department with chief complaint of neck pain. Patient is essentially returning to the ED in order to obtain an x-ray of the neck. Patient was in the ED earlier today and was discharged with Flexeril. I offered a muscle relaxer to the patient but she declined. X-ray shows mild strengthening which could represent a spasm. X-rays otherwise unremarkable. No nuchal rigidity or any signs of meningitis. No fevers or chills. Patient advised to alternate between Tylenol and Motrin. Patient advised to apply warm compress. Patient was requesting Valium but I did not give it to her. Return parameters thoroughly discussed with patient was understanding and agreeable. Case discussed with physician. Disposition Clinical Impression: Cervical muscle strain Disposition: HOME SELF-CARE Condition: Good Instructions (If sedation given, give patient instructions): Cervical Strain (ED) Additional Instructions: Take Flexeril as needed. Apply warm compress around the neck. Return to emergency department if symptoms worsen. Is patient prescribed a controlled substance at d/c from ED?: No Referrals: Yancy Conteh MD [Primary Care Provider] - 1-2 days Time of Disposition: 22:01
[2019-07-15 22:16] VITALS: BP 131/82; PULSE 85; RESP 16; TEMP 98
== END 2019-07-15 22:15 | disposition home or self-care (01) ==
LOC: EC 20:17
DX: S16.1XXA Strain of muscle, fascia and tendon at neck level, initial encounter (principal); F17.200 Nicotine dependence, unspecified, uncomplicated; F11.11 Opioid abuse, in remission; Z88.1 Allergy status to other antibiotic agents; Z88.5 Allergy status to narcotic agent; X50.9XXA Other and unspecified overexertion or strenuous movements or postures, initial encounter
CPT/HCPCS: 72050; 99283

== ENCOUNTER 2019-07-22 19:53 | Emergency (ER) | payer OTHER ==
[2019-07-22] MEDS ORDERED: LORazepam 2 MG/ML INJ IM STA (20:51)
--- NOTE | 2019-07-22 21:03 | ED ---
General Adult HPI - General Chief complaint: Anxiety Stated complaint: Panic Attack Time Seen by Provider: 07/22/19 20:25 Source: patient, RN notes reviewed, old records reviewed Mode of arrival: ambulatory - History of Present Illness Initial comments: 29-year-old female patient brought to ED for evaluation of anxiety. Patient reports that her mother recently from heart issues and she is going through Facebook and then became very anxious and sad. Reports that she is unable to control her anxiety. She states that she does feels that her heart is beating fast she's had some heart palpitations. Denies any chest pain or shortness of breath. Denies any other complaints at this time. Denies any chance of being . Systemic: Pt denies fatigue, fever/chills, rash. Pt denies weakness, night sweats, weight loss. Neuro: Pt denies headache, visual disturbances, syncope or pre-syncope. HEENT: Pt denies ocular discharge or irritation, otalgia, rhinorrhea, pharyngitis or notable lymphadenopathy. Cardiopulmonary: Pt denies chest pain, SOB, heart palpitations, dyspnea on exertion. Abdominal/GI: Pt denies abdominal pain, n/v/d. : Pt denies dysuria, burning w/ urination, frequency/urgency. Denies new onset urinary or bowel incontinence. MSK: Pt denies myalgia, loss of strength or function in extremities. Neuro: Pt denies new onset weakness, paresthesias. - Related Data Previous Rx's Medication Instructions Recorded metroNIDAZOLE [Flagyl] 500 mg PO BID #14 tab 04/09/19 Naproxen [Naprosyn] 500 mg PO Q12HR #20 tab 07/15/19 Allergies Allergy/AdvReac Type Severity Reaction Status Date / Time cefixime [From Suprax] Allergy Unknown Verified 07/15/19 20:22 narcotics AdvReac recovering Uncoded 07/15/19 20:22 addict Review of Systems ROS Statement: Those systems with pertinent positive or pertinent negative responses have been documented in the HPI. ROS Other: All systems not noted in ROS Statement are negative. Past Medical History Past Medical History: No Reported History Additional Past Medical History / Comment(s): previous heroin abuse-years ago History of Any Multi-Drug Resistant Organisms: None Reported Past Surgical History: No Surgical Hx Reported Past Psychological History: Anxiety, Depression Smoking Status: Current every day smoker Past Alcohol Use History: None Reported Past Drug Use History: Marijuana General Exam - General Exam Comments Initial Comments: Constitutional: NAD, AOX3, Pt has pleasant affect. HEENT: NC/AT, trachea midline, neck supple, no lymphadenopathy. Posterior pharynx non erythematous, without exudates. External ears appear normal, without discharge. Mucous membranes moist. Eyes PERRLA, EOM intact. There is no scleral icterus. No pallor noted. Cardiopulmonary: RRR, no murmurs, rubs or gallops, no JVD noted. Lungs CTAB in anterior and posterior womack. No peripheral edema. Abdominal exam: Abdomen soft and non-distended. Abdomen non-tender to palpation in all 4 quadrants. Bowel sounds active in LLQ. No hepatosplenomegaly. No ecchymosis Neuro: CN II-XII grossly intact. No nuchal rigidity. No raccon eyes, no handley sign, no hemotympanum. No cervical spinal tenderness. MSK: No posterior calf tenderness bilaterally, homans sign negative bilaterally. Posterior tibialis and radial pulse +2 bilaterally. Sensation intact in upper and lower extremities. Full active ROM in upper and lower extremities, 5/5 stregnth. Course Vital Signs 07/22/19 07/22/19 20:11 21:38 Temperature 98.0 F 98.5 F Pulse Rate 81 72 Respiratory 17 19 Rate Blood Pressure 128/87 141/75 O2 Sat by Pulse 98 97 Oximetry Medical Decision Making - Medical Decision Making 29-year-old female patient with ED for chief complaint of anxiety, heart palpitations. Patient vital signs are stable, afebrile. Physical exam did not display any acute pathology. EKG is performed and displayed normal sinus rhythm. Patient was administered and anti-anxiolytic. Prior to chest x-ray patient reports that her grandmother is in the process of passing away and she needed to leave immediately. Explained to patient that workup was incomplete and she verbalized understanding, risks were discussed, patient verbalized understanding. Patient continues to deny any suicidal or homicidal ideations. Has outpatient follow-up with primary care provider and mental health and will return to ER if condition worsens. Case discussed with Dr. Benjamin. - EKG Data -: EKG Interpreted by Me (and Dr. Benjamin ) EKG Comments: Ventricular rate 62, HI interval 176, QRS 94, QT/QTc 440/446. Normal sinus rhythm, normal EKG, no concern for acute ischemia. Disposition Clinical Impression: Acute anxiety Disposition: HOME SELF-CARE Instructions (If sedation given, give patient instructions): Generalized Anxiety Disorder (ED) Additional Instructions: Follow-up with primary care provider tomorrow. Follow-up with [facility] as directed. Return to ER if condition worsens. Is patient prescribed a controlled substance at d/c from ED?: No Referrals: Yancy Conteh MD [Primary Care Provider] - 1-2 days
[2019-07-22 21:40] VITALS: BP 141/75; PULSE 72; RESP 19; TEMP 98.5
== END 2019-07-22 21:38 | disposition home or self-care (01) ==
LOC: EC 19:53
DX: F41.9 Anxiety disorder, unspecified (principal); R00.2 Palpitations; F17.200 Nicotine dependence, unspecified, uncomplicated; F11.11 Opioid abuse, in remission; Z88.5 Allergy status to narcotic agent; Z88.1 Allergy status to other antibiotic agents
CPT/HCPCS: 93005; 99284; 96372; J2060